=== PATIENT | male | born 1970 | race African-American/Black ===

== ENCOUNTER 2017-04-29 12:38 | Emergency (ER) | payer MEDICAID ==
[~2017-04-29] VITALS: Ht 170.2 cm; Wt 54.2 kg
[2017-04-29 12:40] VITALS: BP 164/104
[2017-04-29] MEDS ORDERED: DIPH,PERTUSS(ACELL),TET VAC/PF 0.5 ML IM-VACC ONE ×2 (13:30→13:33)
[2017-04-29] MEDS ORDERED: IBUPROFEN 200 MG TABLET ONE (13:36)
[2017-04-29] MEDS ORDERED: LIDOCAINE 1%, 20ML ONE (13:37)
[2017-04-29] MEDS ORDERED: LIDOCAINE 1%, 20ML SQ ONE (14:00)
[2017-04-29] MEDS ORDERED: IBUPROFEN 200 MG TABLET PO ONE (14:00)
== END 2017-04-29 13:56 | disposition home or self-care (01) ==
LOC: ED 13:50
DX: S71.112A Laceration without foreign body, left thigh, initial encounter (principal); I10 Essential (primary) hypertension; W26.0XXA Contact with knife, initial encounter; Y93.89 Activity, other specified; Y92.098 Other place in other non-institutional residence as the place of occurrence of the external cause; Y99.8 Other external cause status
CPT/HCPCS: 12031; 90471; 90715; 99284; J3490

== ENCOUNTER 2017-06-16 22:34 | Emergency (ER) | payer MEDICAID ==
[~2017-06-16] VITALS: Ht 170.2 cm; Wt 61.0 kg
[2017-06-16 22:38] VITALS: BP 186/128
[2017-06-16] MEDS ORDERED: CLON0.1T PO (22:44)
== END 2017-06-16 23:20 | disposition home or self-care (01) ==
LOC: ED 22:49
DX: Z76.0 Encounter for issue of repeat prescription (principal); I10 Essential (primary) hypertension; F11.10 Opioid abuse, uncomplicated; F17.200 Nicotine dependence, unspecified, uncomplicated
CPT/HCPCS: 99283

== ENCOUNTER 2017-06-24 16:44 | Emergency (ER) | payer MEDICAID ==
[~2017-06-24] VITALS: Ht 170.2 cm; Wt 53.0 kg
[~2017-06-24 16:44] MED LIST: CLON0.1T PO
[2017-06-24 16:45] VITALS: BP 155/87
== END 2017-06-24 17:11 | disposition home or self-care (01) ==
LOC: ED 16:59
DX: S81.012D Laceration without foreign body, left knee, subsequent encounter (principal); I10 Essential (primary) hypertension; X58.XXXD Exposure to other specified factors, subsequent encounter; Y92.89 Other specified places as the place of occurrence of the external cause; Y99.8 Other external cause status
CPT/HCPCS: 99281

== ENCOUNTER 2017-08-26 18:57 | Emergency (ER) | payer MEDICAID, OTHER ==
[~2017-08-26] VITALS: Ht 175.3 cm; Wt 75.0 kg
[2017-08-26 19:14] VITALS: BP 174/115
== END 2017-08-26 20:01 | disposition left against medical advice (07) ==
LOC: ED 19:07
DX: I10 Essential (primary) hypertension (principal)
CPT/HCPCS: 99281; 99283

== ENCOUNTER 2017-08-27 16:41 | Emergency (ER) | payer SELFPAY ==
[~2017-08-27] VITALS: Ht 170.2 cm; Wt 53.7 kg
[2017-08-27 18:46] LABS: HEMATOCRIT 44.4 % (39.2-51.8); HEMOGLOBIN 14.4 g/dL (13.7-18.0); WHITE BLOOD COUNT 9.9 x10^3/uL (3.4-10)
[2017-08-27 18:56] LABS: BLOOD UREA NITROGEN 17 mg/dL (7-18)
[2017-08-27 19:13] VITALS: BP 177/117
[2017-08-27 20:59] LABS: DIFF TOTAL CELLS COUNTED 100 CELL DIFF
[2017-08-27 21:00] LABS: VERIFY COUNTS? YES
[2017-08-27 21:01] LABS: ANISOCYTOSIS 1+
[2017-08-27 21:02] LABS: SMUDGE CELLS 1+
[2017-08-27 21:03] LABS: POLYCHROMASIA 1+
[2017-08-27 21:04] LABS: LARGE PLATELETS 1+
== END 2017-08-27 19:58 | disposition left against medical advice (07) ==
LOC: ED 19:00
DX: R51 Headache (principal); I10 Essential (primary) hypertension
CPT/HCPCS: 36415; 80048; 82040; 85025; 99284

== ENCOUNTER 2017-10-19 15:50 | Emergency (ER) | payer MEDICAID, OTHER ==
[~2017-10-19] VITALS: Ht 170.2 cm; Wt 60.0 kg
[2017-10-19 16:11] VITALS: BP 146/99
[2017-10-19 16:43] LABS: BASOPHILS # (AUTO) 0.03 x10^3/uL (0-0.1); BASOPHILS % (AUTO) 1 % (0-1); EOSINOPHILS # (AUTO) 0.03 x10^3/uL (0-0.4); EOSINOPHILS % (AUTO) 0 % (1-7); LYMPHOCYTES # (AUTO) 2.92 x10^3/uL (1-3.4); LYMPHOCYTES % (AUTO) 40 % (22-44); MD NO; MEAN CORPUSCULAR HEMOGLOBIN 26.4 pg (27.5-34.5); MEAN CORPUSCULAR HGB CONC 31.7 g/dL (33.2-36.2); MEAN CORPUSCULAR VOLUME 83.3 fL (81-97); MEAN PLATELET VOLUME 8.3 fL (7.4-10.4); MONOCYTES % (AUTO) 7 % (2-9); NEUTROPHILS # (AUTO) 3.82 x10^3/uL (1.8-6.8); NEUTROPHILS % (AUTO) 52 % (42-75); PLATELET COUNT 163 x10^3/uL (130-400); RED CELL DISTRIBUTION WIDTH 17.3 % (9.4-14.8)
[2017-10-19 16:55] LABS: ALANINE AMINOTRANSFERASE 44 U/L (12-78); ALBUMIN 3.1 g/dL (3.4-5.0); ANION GAP 6 mmol/L (5-15); CALCIUM 7.8 mg/dL (8.5-10.1); CHLORIDE 106 mmol/L (98-107)
[2017-10-19 17:00] LABS: ALKALINE PHOSPHATASE 111 U/L (45-117); BILIRUBIN,TOTAL 0.4 mg/dL (0.2-1.0); CREATININE 1.07 mg/dL (0.7-1.3); TOTAL PROTEIN 7.9 g/dL (6.4-8.2); TROPONIN I < 0.015 ng/mL (0.000-0.045)
== END 2017-10-19 19:21 | disposition left against medical advice (07) ==
LOC: ED 19:11
DX: R07.9 Chest pain, unspecified (principal)
CPT/HCPCS: 36415; 71045; 80053; 84484; 85025; 99285

== ENCOUNTER 2018-02-18 02:59 | Emergency (ER) | payer MEDICAID ==
[~2018-02-18] VITALS: Ht 170.2 cm; Wt 53.3 kg
[~2018-02-18 02:59] MED LIST changes: +LISI-167 PO
[2018-02-18 03:01] VITALS: BP 153/111
== END 2018-02-18 04:50 | disposition home or self-care (01) ==
LOC: ED 03:41
DX: S80.01XA Contusion of right knee, initial encounter (principal); I10 Essential (primary) hypertension; X58.XXXA Exposure to other specified factors, initial encounter; Y93.89 Activity, other specified; Y99.8 Other external cause status; Y92.89 Other specified places as the place of occurrence of the external cause
CPT/HCPCS: 99284

== ENCOUNTER 2018-06-23 03:03 | Emergency (ER) | payer MEDICAID ==
[~2018-06-23] VITALS: Ht 170.2 cm; Wt 53.7 kg
[2018-06-23 04:02] VITALS: BP 131/74
== END 2018-06-23 04:08 | disposition home or self-care (01) ==
LOC: ED 03:50
DX: L73.9 Follicular disorder, unspecified (principal); I10 Essential (primary) hypertension; Z76.0 Encounter for issue of repeat prescription
CPT/HCPCS: 99283

== ENCOUNTER 2018-07-13 18:39 | Emergency (ER) | payer MEDICAID ==
[~2018-07-13] VITALS: Ht 170.2 cm; Wt 54.0 kg
[2018-07-13 19:32] LABS: ALANINE AMINOTRANSFERASE 52 U/L (12-78); ALBUMIN 3.4 g/dL (3.4-5.0); ANION GAP 7 mmol/L (5-15); CALCIUM 8.4 mg/dL (8.5-10.1); CHLORIDE 105 mmol/L (98-107); CREATININE 1.04 mg/dL (0.7-1.3)
[2018-07-13 19:37] LABS: ALKALINE PHOSPHATASE 73 U/L (45-117); BILIRUBIN,TOTAL 0.6 mg/dL (0.2-1.0); TOTAL PROTEIN 8.3 g/dL (6.4-8.2); TROPONIN I < 0.015 ng/mL (0.000-0.045)
[2018-07-13 20:01] LABS: MD YES
[2018-07-13 20:06] LABS: MEAN CORPUSCULAR HEMOGLOBIN 27.3 pg (27.5-34.5); MEAN CORPUSCULAR HGB CONC 32.5 g/dL (33.2-36.2); MEAN CORPUSCULAR VOLUME 84.2 fL (81-97); MEAN PLATELET VOLUME 8.1 fL (7.4-10.4); PLATELET COUNT 194 x10^3/uL (130-400); RED CELL DISTRIBUTION WIDTH 17.5 % (9.4-14.8)
[2018-07-13 20:11] LABS: BASOS#(MANUAL) 0.06 x10^3/uL (0-0.1); BASOS% (MANUAL) 1 % (0-1); LYMPHS% (MANUAL) 50 % (22-44); MONOS#(MANUAL) 0.64 x10^3/uL (0.3-2.7); MONOS% (MANUAL) 11 % (2-9); REACTIVE LYMPHS # (MANUAL) 0.12 x10^3/uL (0-0); REACTIVE LYMPHS % (MANUAL) 2 % (0-0); SEG#(MANUAL) 2.09 x10^3/uL (1.8-6.8); SEGS% (MANUAL) 36 % (42-75)
[2018-07-13 20:12] LABS: ANISOCYTOSIS 1+
[2018-07-13 20:13] LABS: <PLATELET ESTIMATE> ADEQUATE; <PLT MORPHOLOGY> NORMAL PLT MORPH
[2018-07-13 20:27] VITALS: BP 147/81
== END 2018-07-13 20:35 | disposition home or self-care (01) ==
LOC: ED 20:22
DX: R07.89 Other chest pain (principal); I10 Essential (primary) hypertension; Z76.0 Encounter for issue of repeat prescription; F17.210 Nicotine dependence, cigarettes, uncomplicated
CPT/HCPCS: 36415; 71046; 80053; 84484; 85025; 93005; 99285

== ENCOUNTER 2018-07-24 15:35 | Emergency (ER) | payer MEDICAID ==
[~2018-07-24] VITALS: Ht 170.2 cm; Wt 59.0 kg
[2018-07-24] MEDS ORDERED: ASPIRIN 81 MG TABLET CHEW PO ONE (16:00)
[2018-07-24] MEDS ORDERED: ASPIRIN 81 MG TABLET CHEW ONE (16:01)
[2018-07-24 16:21] LABS: ALANINE AMINOTRANSFERASE 50 U/L (12-78); ALBUMIN 3.2 g/dL (3.4-5.0); ANION GAP 9 mmol/L (5-15); CALCIUM 8.4 mg/dL (8.5-10.1); CHLORIDE 107 mmol/L (98-107)
[2018-07-24 16:25] LABS: ALKALINE PHOSPHATASE 78 U/L (45-117); BILIRUBIN,TOTAL 0.7 mg/dL (0.2-1.0); TOTAL PROTEIN 7.7 g/dL (6.4-8.2); TROPONIN I < 0.015 ng/mL (0.000-0.045)
[2018-07-24 16:34] LABS: MD YES; MEAN CORPUSCULAR HEMOGLOBIN 26.8 pg (27.5-34.5); MEAN CORPUSCULAR HGB CONC 32.4 g/dL (33.2-36.2); MEAN CORPUSCULAR VOLUME 82.8 fL (81-97); MEAN PLATELET VOLUME 8.8 fL (7.4-10.4); PLATELET COUNT 136 x10^3/uL (130-400); RED BLOOD COUNT 4.62 x10^6/uL (4.38-5.82); RED CELL DISTRIBUTION WIDTH 17.4 % (9.4-14.8)
[2018-07-24 16:39] LABS: LYMPHS% (MANUAL) 33 % (22-44); REACTIVE LYMPHS % (MANUAL) 1 % (0-0)
[2018-07-24 16:40] LABS: <PLATELET ESTIMATE> ADEQUATE; <PLT MORPHOLOGY> NORMAL PLT MORPH; ANISOCYTOSIS 1+; HYPOCHROMIA 1+; MONOS% (MANUAL) 6 % (2-9); SEGS% (MANUAL) 60 % (42-75); SMUDGE CELLS 1+
[2018-07-24] MEDS ORDERED: KETOROLAC 30 MG/1 ML ONE (17:16)
[2018-07-24] MEDS ORDERED: KETOROLAC 30 MG/1 ML IVPush ONE (17:30)
[2018-07-24] MEDS ORDERED: OMNIPAQUE 350 MG/ML, 100ML BOTTLE ONE (18:07)
[2018-07-24] MEDS ORDERED: ALBUTEROL/IPRATROPIUM 2.5MG/0.5MG, 3 ML ONE (18:49)
[2018-07-24] MEDS ORDERED: ALBUTEROL SULFATE 2.5 MG/3 ML NPPB ONE (19:00)
[2018-07-24 19:09] VITALS: BP 142/96
== END 2018-07-24 19:33 | disposition home or self-care (01) ==
LOC: ED 17:28
DX: J18.9 Pneumonia, unspecified organism (principal); R09.1 Pleurisy; I10 Essential (primary) hypertension
CPT/HCPCS: 36415; 71045; 71275; 80053; 84484; 85025; 93005; 94640; 96374; 99285; J1885; J7613; Q9967

== ENCOUNTER 2018-10-02 19:36 | Emergency (ER) | payer MEDICAID ==
[~2018-10-02] VITALS: Ht 170.2 cm; Wt 54.7 kg
[~2018-10-02 19:36] MED LIST changes: -CLON0.1T PO; +CLON0.1T22 PO
--- NOTE | 2018-10-02 19:49 | NUR ---
NIL X 1 WHEN CALLED FOR TRIAGE.
[2018-10-02 20:36] LABS: RAPID INFLUENZA A Negative (Negative); RAPID INFLUENZA B Negative (Negative)
--- NOTE | 2018-10-02 21:12 | NUR ---
PT PLACED IN ROOM
[2018-10-02 21:13] LABS: BASOPHILS # (AUTO) 0.02 x10^3/uL (0-0.1); BASOPHILS % (AUTO) 0 % (0-1); EOSINOPHILS # (AUTO) 0.02 x10^3/uL (0-0.4); EOSINOPHILS % (AUTO) 0 % (1-7); LYMPHOCYTES # (AUTO) 3.31 x10^3/uL (1-3.4); LYMPHOCYTES % (AUTO) 36 % (22-44); MD NO; MEAN CORPUSCULAR HEMOGLOBIN 27.6 pg (27.5-34.5); MEAN CORPUSCULAR HGB CONC 32.5 g/dL (33.2-36.2); MEAN PLATELET VOLUME 8.4 fL (7.4-10.4); MONOCYTES # (AUTO) 0.72 x10^3/uL (0.2-0.8); MONOCYTES % (AUTO) 8 % (2-9); NEUTROPHILS # (AUTO) 5.07 x10^3/uL (1.8-6.8); NEUTROPHILS % (AUTO) 56 % (42-75); PLATELET COUNT 160 x10^3/uL (130-400); RED BLOOD COUNT 5.07 x10^6/uL (4.38-5.82)
[2018-10-02 21:27] LABS: ALBUMIN 3.3 g/dL (3.4-5.0); ANION GAP 2 mmol/L (5-15); CALCIUM 8.5 mg/dL (8.5-10.1); CHLORIDE 106 mmol/L (98-107); CREATININE 0.99 mg/dL (0.7-1.3)
[2018-10-02] MEDS ORDERED: LISINOPRIL 20 MG TABLET PO ONE (22:00)
[2018-10-02] MEDS ORDERED: LISINOPRIL 20 MG TABLET ONE (22:35)
[2018-10-02 22:40] VITALS: BP 178/99
--- NOTE | 2018-10-02 22:41 | NUR ---
PT MEDICATED PER EMAR. 5 RIGHTS ADDRESSED.
== END 2018-10-02 23:12 | disposition home or self-care (01) ==
LOC: ED 22:00
DX: B34.9 Viral infection, unspecified (principal); I10 Essential (primary) hypertension
CPT/HCPCS: 36415; 71046; 80048; 82040; 85025; 87400; 99284

== ENCOUNTER 2018-11-13 05:27 | Emergency (ER) | payer MEDICAID ==
[~2018-11-13] VITALS: Ht 170.2 cm; Wt 54.7 kg
--- NOTE | 2018-11-13 05:41 | NUR ---
c/o mid sternal pain x 1 hr. described as tightness. pain radiates to right arm.+ SOB. BP elevated in triage. Hx of HTN. per triage note
[2018-11-13] MEDS ORDERED: ASPIRIN 81 MG TABLET CHEW ONE (05:47)
--- NOTE | 2018-11-13 05:54 | NUR ---
given asa 162mg pt is resting
[2018-11-13] MEDS ORDERED: ASPIRIN 81 MG TABLET CHEW PO ONE (06:00)
[2018-11-13 06:34] LABS: MEAN CORPUSCULAR HEMOGLOBIN 27.5 pg (27.5-34.5); MEAN CORPUSCULAR HGB CONC 32.9 g/dL (33.2-36.2); MEAN CORPUSCULAR VOLUME 83.4 fL (81-97); MEAN PLATELET VOLUME 8.8 fL (7.4-10.4); PLATELET COUNT 170 x10^3/uL (130-400); RED BLOOD COUNT 4.99 x10^6/uL (4.38-5.82); RED CELL DISTRIBUTION WIDTH 16.6 % (9.4-14.8)
[2018-11-13 06:35] LABS: ANION GAP 6 mmol/L (5-15); CALCIUM 8.2 mg/dL (8.5-10.1); CHLORIDE 104 mmol/L (98-107)
--- NOTE | 2018-11-13 06:37 | NUR ---
bp is still elevated pt denied headache
[2018-11-13 06:40] LABS: CREATININE 1.19 mg/dL (0.7-1.3); TROPONIN I < 0.015 ng/mL (0.000-0.045)
[2018-11-13 06:46] LABS: BASOPHILS # (AUTO) 0.03 x10^3/uL (0-0.1); BASOPHILS % (AUTO) 1 % (0-1); EOSINOPHILS # (AUTO) 0.04 x10^3/uL (0-0.4); EOSINOPHILS % (AUTO) 1 % (1-7); LYMPHOCYTES # (AUTO) 2.55 x10^3/uL (1-3.4); LYMPHOCYTES % (AUTO) 37 % (22-44); MD SCAN; MONOCYTES # (AUTO) 0.29 x10^3/uL (0.2-0.8); MONOCYTES % (AUTO) 4 % (2-9); NEUTROPHILS # (AUTO) 3.97 x10^3/uL (1.8-6.8); NEUTROPHILS % (AUTO) 58 % (42-75)
--- NOTE | 2018-11-13 06:47 | NUR ---
given be d side report to emanuel Benavides
[2018-11-13 07:33] VITALS: BP 167/110
--- NOTE | 2018-11-13 07:35 | NUR ---
PT RESTING IN BED. NO WANTS OR NEEDS EXPRESSED AT THIS TIME.
== END 2018-11-13 09:32 | disposition home or self-care (01) ==
LOC: ED 07:30
DX: I10 Essential (primary) hypertension (principal); R07.89 Other chest pain; F11.20 Opioid dependence, uncomplicated; Z72.9 Problem related to lifestyle, unspecified; Z87.01 Personal history of pneumonia (recurrent)
CPT/HCPCS: 36415; 71045; 80048; 82040; 84484; 85025; 93005; 99284

== ENCOUNTER 2018-11-28 22:26 | Emergency (ER) | payer MEDICAID ==
[~2018-11-28] VITALS: Ht 170.2 cm; Wt 53.5 kg
[2018-11-28 22:29] VITALS: BP 168/118
--- NOTE | 2018-11-28 22:38 | NUR ---
PT HERE FOR RX, PT LOST RX FOR BP MEDS AND HYDROCORTISONE CREAM. PT DENIES ANY JACKMAN,SOB,CP OR ANY DISTRESS.
[2018-11-28] MEDS ORDERED: LISINOPRIL 20 MG TABLET ONE (23:26)
[2018-11-28] MEDS ORDERED: LISINOPRIL 20 MG TABLET PO ONE (23:30)
--- NOTE | 2018-11-28 23:53 | NUR ---
PT ELOPED NOT FOUND IN ROOM AT THIS TIME OR IN ED.
== END 2018-11-28 23:55 | disposition left against medical advice (07) ==
LOC: ED 23:49
DX: I10 Essential (primary) hypertension (principal)
CPT/HCPCS: 80048; 82040; 85025; 99282

== ENCOUNTER 2019-07-19 22:09 | Emergency (ER) | payer MEDICAID ==
[~2019-07-19] VITALS: Ht 170.2 cm; Wt 58.0 kg
[2019-07-19] MEDS ORDERED: LISINOPRIL 20 MG TABLET PO ONE (22:30)
[2019-07-19] MEDS ORDERED: DIPHENHYDRAMINE 50 MG/ML, 1ML IVPush ONE (22:30)
[2019-07-19] MEDS ORDERED: SODIUM CHLORIDE FLUSH 10ML SYR IVF ONE (22:30)
[2019-07-19] MEDS ORDERED: KETOROLAC 30 MG/1 ML IVPush ONE (22:30)
[2019-07-19] MEDS ORDERED: METOCLOPRAMIDE 5 MG/ML, 2ML IVPush ONE (22:30)
[2019-07-19] MEDS ORDERED: LISINOPRIL 20 MG TABLET ONE (22:46)
[2019-07-19] MEDS ORDERED: KETOROLAC 30 MG/1 ML ONE (22:46)
[2019-07-19] MEDS ORDERED: DIPHENHYDRAMINE 50 MG/ML, 1ML ONE (22:46)
[2019-07-19] MEDS ORDERED: METOCLOPRAMIDE 5 MG/ML, 2ML ONE (22:46)
[2019-07-19 22:53] LABS: ANION GAP 4 mmol/L (5-15); CALCIUM 8.8 mg/dL (8.5-10.1); CHLORIDE 104 mmol/L (98-107); CREATININE 0.94 mg/dL (0.7-1.3)
--- NOTE | 2019-07-19 23:00 | NUR ---
IV STARTED, PT MEDICATED PER ORDERS. BLANKET & CRACKERS PROVIDED.
[2019-07-19] MEDS ORDERED: hydrALAzine 20 MG/ML, 1ML ONE (23:23)
--- NOTE | 2019-07-19 23:23 | NUR ---
ERP WAS IN FOR RECHECK. BP STILL ELEVATED, WILL MEDICATE WITH HYDRALAZINE. REPORTED TO TINO WATERMAN.
--- NOTE | 2019-07-19 23:27 | NUR ---
REPORT FROM SAL RN
[2019-07-19] MEDS ORDERED: hydrALAzine 20 MG/ML, 1ML IV ONE (23:30)
[2019-07-19 23:58] VITALS: BP 158/110
== END 2019-07-20 00:22 | disposition home or self-care (01) ==
LOC: ED 23:13
DX: G43.019 Migraine without aura, intractable, without status migrainosus (principal); I10 Essential (primary) hypertension
CPT/HCPCS: 36415; 80048; 93005; 96374; 96375; 99284; J0360; J1200; J1885; J2765

== ENCOUNTER 2019-08-28 02:09 | Emergency (ER) | payer MEDICAID ==
[~2019-08-28] VITALS: Ht 170.2 cm; Wt 56.5 kg
--- NOTE | 2019-08-28 02:16 | NUR ---
PT IN BR WHEN CALLED TO TRIAGE
--- NOTE | 2019-08-28 02:38 | NUR ---
INITIAL CONTACT WITH PT. ASSESSMENT DONE. PT WAITING TO BE SEEN BY .
[2019-08-28] MEDS ORDERED: SODIUM CHLORIDE FLUSH 10ML SYR IVF ONE (03:00)
[2019-08-28] MEDS ORDERED: ACETAMINOPHEN 500 MG TABLET PO ONE (03:00)
[2019-08-28] MEDS ORDERED: ONDANSETRON 2MG/ML, 2ML IVPush ONE (03:00)
[2019-08-28] MEDS ORDERED: SODIUM CHLORIDE 0.9% 1,000ML IVBOLUS ONE (03:00)
[2019-08-28] MEDS ORDERED: ONDANSETRON 2MG/ML, 2ML ONE (03:07)
[2019-08-28] MEDS ORDERED: ACETAMINOPHEN 500 MG TABLET ONE (03:07)
[2019-08-28 03:13] LABS: BASOPHILS % (AUTO) 0 % (0-1); EOSINOPHILS # (AUTO) 0.02 x10^3/uL (0-0.4); EOSINOPHILS % (AUTO) 0 % (1-7); LYMPHOCYTES # (AUTO) 2.19 x10^3/uL (1-3.4); LYMPHOCYTES % (AUTO) 23 % (22-44); MD NO; MEAN CORPUSCULAR HEMOGLOBIN 27.2 pg (27.5-34.5); MEAN CORPUSCULAR HGB CONC 31.9 g/dL (33.2-36.2); MEAN CORPUSCULAR VOLUME 85.4 fL (81-97); MEAN PLATELET VOLUME 8.2 fL (7.4-10.4); MONOCYTES # (AUTO) 0.56 x10^3/uL (0.2-0.8); MONOCYTES % (AUTO) 6 % (2-9); NEUTROPHILS # (AUTO) 6.57 x10^3/uL (1.8-6.8); NEUTROPHILS % (AUTO) 70 % (42-75); PLATELET COUNT 142 x10^3/uL (130-400); RED BLOOD COUNT 4.76 x10^6/uL (4.38-5.82); RED CELL DISTRIBUTION WIDTH 16.8 % (9.4-14.8)
[2019-08-28 03:23] LABS: RAPID INFLUENZA A Negative (Negative); RAPID INFLUENZA B Negative (Negative)
[2019-08-28 03:24] LABS: CHLORIDE 104 mmol/L (98-107)
[2019-08-28 03:30] LABS: ALANINE AMINOTRANSFERASE 42 U/L (12-78); ALBUMIN 3.1 g/dL (3.4-5.0); ALKALINE PHOSPHATASE 113 U/L (45-117); ANION GAP 6 mmol/L (5-15); BILIRUBIN,TOTAL 1.2 mg/dL (0.2-1.0); CALCIUM 8.1 mg/dL (8.5-10.1); CREATININE 0.94 mg/dL (0.7-1.3); TOTAL PROTEIN 8.6 g/dL (6.4-8.2)
--- NOTE | 2019-08-28 05:26 | NUR ---
PT RESTNG QUIETLY, JACKMAN RESOLVED. IV FLUIDS NOT INFUSED DUE TO POSITIONAL IV. ARM POSITIONED, IV FLOWING RAPIDLY. WILL DC AFTER PT RECEIVES MORE IV FLUIDS. VS UPDATED.
[2019-08-28 05:28] VITALS: BP 152/103
--- NOTE | 2019-08-28 06:03 | NUR ---
PT DC'D HOME WITH RX X 2 AND UNDERSTANDING OF INSTRUCTIONS. PT TO DC DESK WITHOUT DIFFICULTY.
== END 2019-08-28 06:06 | disposition home or self-care (01) ==
LOC: ED 02:54
DX: R11.2 Nausea with vomiting, unspecified (principal); B34.9 Viral infection, unspecified; I10 Essential (primary) hypertension; R00.0 Tachycardia, unspecified; G43.909 Migraine, unspecified, not intractable, without status migrainosus; F17.200 Nicotine dependence, unspecified, uncomplicated
CPT/HCPCS: 36415; 71045; 80053; 85025; 87400; 93005; 96361; 96374; 99284; 99406; J2405; J7030

== ENCOUNTER 2019-12-08 05:30 | Emergency (ER) | payer MEDICAID ==
[~2019-12-08] VITALS: Ht 170.2 cm; Wt 54.8 kg
--- NOTE | 2019-12-08 05:42 | NUR ---
PA AT BEDSIDE TO ASSESS PT
[2019-12-08] MEDS ORDERED: HYDROcodone/APAP 5/325 TABLET ONE (05:47)
--- NOTE | 2019-12-08 05:49 | NUR ---
PT MEDICATED PER MAR
[2019-12-08] MEDS ORDERED: LISINOPRIL 20 MG TABLET ONE (05:59)
[2019-12-08] MEDS ORDERED: LISINOPRIL 20 MG TABLET PO ONE (06:00)
[2019-12-08] MEDS ORDERED: HYDROcodone/APAP 5/325 TABLET PO ONE (06:00)
[2019-12-08 07:07] VITALS: BP 155/115
--- NOTE | 2019-12-08 07:24 | NUR ---
Patient/Caregiver given discharge instructions and they have confirmed that they understand the instructions. Patient ambulatory with steady gait.
== END 2019-12-08 07:26 | disposition home or self-care (01) ==
LOC: ED 06:54
DX: S42.031A Displaced fracture of lateral end of right clavicle, initial encounter for closed fracture (principal); I10 Essential (primary) hypertension; G43.909 Migraine, unspecified, not intractable, without status migrainosus; W01.0XXA Fall on same level from slipping, tripping and stumbling without subsequent striking against object, initial encounter; Y93.01 Activity, walking, marching and hiking; Y92.410 Unspecified street and highway as the place of occurrence of the external cause; Y99.8 Other external cause status
CPT/HCPCS: 99283

== ENCOUNTER 2019-12-22 05:46 | Emergency (ER) | payer MEDICAID ==
[~2019-12-22] VITALS: Ht 170.2 cm; Wt 55.0 kg
[2019-12-22] MEDS ORDERED: KETOROLAC 30 MG/1 ML ONE (06:19)
[2019-12-22 06:27] LABS: MEAN CORPUSCULAR HEMOGLOBIN 27.2 pg (27.5-34.5); MEAN CORPUSCULAR HGB CONC 32.1 g/dL (33.2-36.2); MEAN CORPUSCULAR VOLUME 84.6 fL (81-97); MEAN PLATELET VOLUME 8.3 fL (7.4-10.4); PLATELET COUNT 163 x10^3/uL (130-400); RED BLOOD COUNT 5.16 x10^6/uL (4.38-5.82); RED CELL DISTRIBUTION WIDTH 16.1 % (9.4-14.8)
[2019-12-22] MEDS ORDERED: SODIUM CHLORIDE FLUSH 10ML SYR IVF ONE (06:30)
[2019-12-22] MEDS ORDERED: KETOROLAC 30 MG/1 ML IVPush ONE (06:30)
[2019-12-22 06:35] LABS: ALANINE AMINOTRANSFERASE 133 U/L (12-78); ANION GAP 8 mmol/L (5-15); CALCIUM 8.8 mg/dL (8.5-10.1); CHLORIDE 109 mmol/L (98-107); CREATININE 1.07 mg/dL (0.7-1.3)
[2019-12-22 06:40] LABS: ALKALINE PHOSPHATASE 112 U/L (45-117); BILIRUBIN,TOTAL 0.5 mg/dL (0.2-1.0); TOTAL PROTEIN 8.3 g/dL (6.4-8.2); TROPONIN I < 0.015 ng/mL (0.000-0.045)
[2019-12-22 06:52] LABS: MD YES
[2019-12-22 06:54] LABS: EOS#(MANUAL) 0.06 x10^3/uL (0.0-0.4); EOS% (MANUAL) 1 % (1-7)
[2019-12-22 06:55] LABS: LYMPH#(MANUAL) 3.42 x10^3/uL (1-3.4); LYMPHS% (MANUAL) 56 % (22-44); MONOS#(MANUAL) 0.31 x10^3/uL (0.3-2.7); MONOS% (MANUAL) 5 % (2-9); SEG#(MANUAL) 2.32 x10^3/uL (1.8-6.8); SEGS% (MANUAL) 38 % (42-75)
[2019-12-22 06:56] LABS: <PLATELET ESTIMATE> ADEQUATE; <PLT MORPHOLOGY> NORMAL PLT MORPH; ANISOCYTOSIS 1+; HYPOCHROMIA 1+
--- NOTE | 2019-12-22 06:58 | NUR ---
REPORT FROM DALE WATERMAN PATIENT RESTING COMFORTABLY IN BED. POX 97%, NOW ABLE TO TAKE DEEP BREATHS. REPORTS PAIN IMPROVED FROM 8/10 PRIOR TO MEDICATION-TO 5/10 POST
--- NOTE | 2019-12-22 07:19 | NUR ---
STATIONARY BOILER FIREMAN CALLED RADIOLOGY TO EXPEDITE CXR READ- BONBON DIPPER REPORTS RADIOLOGIST WORKING ON RAD NOW
--- NOTE | 2019-12-22 07:32 | NUR ---
TO CT SCAN
[2019-12-22] MEDS ORDERED: OMNIPAQUE 350 MG/ML, 100ML BOTTLE ONE (07:50)
[2019-12-22 08:02] VITALS: BP 168/110
--- NOTE | 2019-12-22 08:04 | NUR ---
Provided with po fluids/solids Pain remains at 5/10, pox 96-100% All testings resulted-Provider made aware
--- NOTE | 2019-12-22 08:40 | NUR ---
PROVIDED WITH REPLACEMENT ARM SLING PATIENT LOST LAST ONE
== END 2019-12-22 09:21 | disposition home or self-care (01) ==
LOC: ED 06:24
DX: R07.89 Other chest pain (principal)
CPT/HCPCS: 36415; 71045; 71275; 80053; 84484; 85025; 85379; 93005; 99285; Q9967

== ENCOUNTER 2020-02-22 18:44 | Emergency (ER) | payer MEDICAID ==
[~2020-02-22] VITALS: Ht 170.2 cm; Wt 55.1 kg
[2020-02-22] MEDS ORDERED: KETOROLAC 30 MG/1 ML ONE (19:49)
[2020-02-22 19:53] VITALS: BP 186/129
[2020-02-22] MEDS ORDERED: KETOROLAC 30 MG/1 ML IM ONE (20:00)
--- NOTE | 2020-02-22 20:46 | NUR ---
Patient is hypertensive but has a hx of HTN. Takes meds but has not been taking them. Refill RX given.
== END 2020-02-22 20:48 | disposition home or self-care (01) ==
LOC: ED 20:15
DX: S42.021A Displaced fracture of shaft of right clavicle, initial encounter for closed fracture (principal); I10 Essential (primary) hypertension; Z72.9 Problem related to lifestyle, unspecified; F15.10 Other stimulant abuse, uncomplicated; F17.200 Nicotine dependence, unspecified, uncomplicated; W01.0XXA Fall on same level from slipping, tripping and stumbling without subsequent striking against object, initial encounter; Y93.89 Activity, other specified; Y92.410 Unspecified street and highway as the place of occurrence of the external cause; Y99.8 Other external cause status
CPT/HCPCS: 73030; 96372; 99283; J1885

== ENCOUNTER 2020-03-14 12:28 | Emergency (ER) | payer MEDICAID ==
[~2020-03-14] VITALS: Ht 170.2 cm; Wt 55.2 kg
--- NOTE | 2020-03-14 12:58 | NUR ---
Pt to room from lobby.
--- NOTE | 2020-03-14 13:12 | NUR ---
PT AMBULATORY TO ROOM 4 W/ C/O R CLAVICLE PAIN AND DISLOCATION. PT STATES HE BROKE IT TWO WEEKS AGO AND WAS WALKING AND HIT HIS SHOULDER IN THE DOORWAY, REINJURING IT. DENIES ANY N/T TO R ARM. CMS INTACT. PT RESTING ON [employer].
[2020-03-14] MEDS ORDERED: HYDROcodone/APAP 5/325 TABLET PO ONE (13:30)
[2020-03-14] MEDS ORDERED: HYDROcodone/APAP 5/325 TABLET ONE (13:37)
--- NOTE | 2020-03-14 14:00 | NUR ---
PT TO AND FROM IMAGING. MEDICATED PER NOV. RESTING ON [employer] [place]. MORALESN. VSS.
[2020-03-14 15:03] VITALS: BP 163/123
--- NOTE | 2020-03-14 15:03 | NUR ---
PT BP REMAINS HIGH AFTER PAIN GENERAL INTERNIST AND PHYSICIAN LEADER. ERP DR. MALDONADO NOTIFIED.
== END 2020-03-14 16:04 | disposition home or self-care (01) ==
LOC: ED 14:19
DX: S42.001A Fracture of unspecified part of right clavicle, initial encounter for closed fracture (principal); I10 Essential (primary) hypertension; X58.XXXA Exposure to other specified factors, initial encounter; Y93.67 Activity, basketball; Y92.89 Other specified places as the place of occurrence of the external cause; Y99.8 Other external cause status
CPT/HCPCS: 99283; 99284

== ENCOUNTER 2020-03-28 21:53 | Emergency (ER) | payer MEDICAID ==
[~2020-03-28] VITALS: Ht 170.2 cm; Wt 54.5 kg
[2020-03-28] MEDS ORDERED: ACETAMINOPHEN 325 MG TABLET ONE (22:28)
[2020-03-28] MEDS ORDERED: ACETAMINOPHEN 325 MG TABLET PO ONE (22:30)
[2020-03-28] MEDS ORDERED: SODIUM CHLORIDE FLUSH 10ML SYR IVF ONE (22:30)
[2020-03-28] MEDS ORDERED: SODIUM CHLORIDE 0.9% 1,000ML IVBOLUS ONE (22:30)
--- NOTE | 2020-03-28 23:05 | NUR ---
ASSISTED PT TO ADJUST BED, NOW RESTING COMFORTABLY WITH NAD NOTED, O2 APPLIED VIA NC 2L AFTER O2 SAT 89-90% ON RA. NO LABORED BREATHING NOTED.
[2020-03-28 23:20] LABS: ALANINE AMINOTRANSFERASE 102 U/L (12-78); ALBUMIN 3.1 g/dL (3.4-5.0); ANION GAP 5 mmol/L (5-15); CALCIUM 8.8 mg/dL (8.5-10.1); CHLORIDE 101 mmol/L (98-107); CREATININE 1.01 mg/dL (0.7-1.3)
[2020-03-28 23:23] LABS: BASOPHILS # (AUTO) 0.03 x10^3/uL (0-0.1); BASOPHILS % (AUTO) 0 % (0-1); EOSINOPHILS # (AUTO) 0.01 x10^3/uL (0-0.4); EOSINOPHILS % (AUTO) 0 % (1-7); LYMPHOCYTES % (AUTO) 35 % (22-44); MD NO; MEAN CORPUSCULAR HEMOGLOBIN 26.9 pg (27.5-34.5); MEAN CORPUSCULAR HGB CONC 32.1 g/dL (33.2-36.2); MEAN CORPUSCULAR VOLUME 83.7 fL (81-97); MEAN PLATELET VOLUME 8.6 fL (7.4-10.4); MONOCYTES # (AUTO) 0.66 x10^3/uL (0.2-0.8); MONOCYTES % (AUTO) 7 % (2-9); NEUTROPHILS # (AUTO) 5.53 x10^3/uL (1.8-6.8); NEUTROPHILS % (AUTO) 57 % (42-75); PLATELET COUNT 126 x10^3/uL (130-400); RED BLOOD COUNT 5.32 x10^6/uL (4.38-5.82)
[2020-03-28 23:25] LABS: ALKALINE PHOSPHATASE 136 U/L (45-117); BILIRUBIN,TOTAL 0.6 mg/dL (0.2-1.0); TOTAL PROTEIN 9.1 g/dL (6.4-8.2); TROPONIN I < 0.015 ng/mL (0.000-0.045)
--- NOTE | 2020-03-29 00:03 | NUR ---
PT BACK FROM CT
[2020-03-29] MEDS ORDERED: OMNIPAQUE 350 MG/ML, 75ML BOTTLE ONE (00:06)
--- NOTE | 2020-03-29 01:06 | NUR ---
PT AMBULATED TO BATHROOM WITHOUT ASSISTANCE, NAD NOTED
--- NOTE | 2020-03-29 01:15 | NUR ---
PT O2 SAT 98% ON RA AFTER WALKING AROUND ROOM, BREATHING WTIHOUT DIFFICULTY
[2020-03-29 03:10] VITALS: BP 154/108
== END 2020-03-29 03:12 | disposition home or self-care (01) ==
LOC: ED 23:55
DX: Z03.818 Encounter for observation for suspected exposure to other biological agents ruled out (principal); R06.00 Dyspnea, unspecified; R05 Cough; R11.2 Nausea with vomiting, unspecified; B34.9 Viral infection, unspecified; R19.7 Diarrhea, unspecified; R94.5 Abnormal results of liver function studies; R00.0 Tachycardia, unspecified; R06.02 Shortness of breath; I10 Essential (primary) hypertension; G43.909 Migraine, unspecified, not intractable, without status migrainosus
CPT/HCPCS: 36415; 71045; 71260; 80053; 84484; 85025; 87040; 87635; 93005; 96360; 96361; 99285; J7030; Q9967

== ENCOUNTER 2020-07-16 14:08 | Emergency (ER) | payer MEDICAID ==
--- NOTE | 2020-07-16 14:36 | NUR ---
INSPECTOR LINE: PT NOT IN LOBBYX1
--- NOTE | 2020-07-16 14:45 | NUR ---
PT CALLED, NIL X 2
--- NOTE | 2020-07-16 15:16 | NUR ---
SEASONAL RETAIL MERCHANDISER: PT NOT IN LOBBY X3 WHEN CALLED FOR ROOM
== END 2020-07-16 15:18 | disposition left against medical advice (07) ==
LOC: ED 15:00
DX: Z53.21 Procedure and treatment not carried out due to patient leaving prior to being seen by health care provider (principal)

== ENCOUNTER 2020-11-03 11:13 | Emergency (ER) | payer MEDICAID ==
[~2020-11-03] VITALS: Ht 170.2 cm; Wt 57.0 kg
--- NOTE | 2020-11-03 11:19 | NUR ---
NO ANSWER X1
[2020-11-03 11:21] VITALS: BP 189/132
--- NOTE | 2020-11-03 11:35 | NUR ---
PT BROUGHT BACK FROM TRIAGE WITH CHIEF COMPLAINT OF LEFT DENTAL PAIN STARTING LAST NIGHT.
[2020-11-03] MEDS ORDERED: KETOROLAC 30 MG/1 ML ONE (11:54)
[2020-11-03] MEDS ORDERED: KETOROLAC 30 MG/1 ML IM ONE (12:00)
--- NOTE | 2020-11-03 12:03 | NUR ---
BREAK RN- MEDICATION PROVIDED
== END 2020-11-03 12:30 | disposition home or self-care (01) ==
LOC: ED 11:31
DX: K08.89 Other specified disorders of teeth and supporting structures (principal); I10 Essential (primary) hypertension
CPT/HCPCS: 96372; 99283; J1885

== ENCOUNTER 2021-04-12 21:01 | Emergency (ER) | payer MEDICAID ==
[~2021-04-12] VITALS: Ht 170.2 cm; Wt 55.2 kg
[2021-04-12 21:10] VITALS: BP 154/126
[2021-04-12] MEDS ORDERED: MORPHINE SULFATE 4 MG/ML, 1ML IVPush PRN (22:30)
[2021-04-12] MEDS ORDERED: SODIUM CHLORIDE 0.9% 1,000ML IVBOLUS ONE (22:30)
[2021-04-12] MEDS ORDERED: SODIUM CHLORIDE FLUSH 10ML SYR IVF ONE (22:30)
[2021-04-12] MEDS ORDERED: ONDANSETRON 2MG/ML, 2ML IVPush ONE (22:30)
--- NOTE | 2021-04-13 01:08 | NUR ---
nil x 1
--- NOTE | 2021-04-13 02:42 | NUR ---
pt called for room na x 2
--- NOTE | 2021-04-13 02:56 | NUR ---
PT CALLED FOR ROOM. NA X 3
== END 2021-04-13 02:58 | disposition left against medical advice (07) ==
LOC: ED 21:21
DX: R07.89 Other chest pain (principal); Z53.21 Procedure and treatment not carried out due to patient leaving prior to being seen by health care provider
CPT/HCPCS: 71045; 93005

== ENCOUNTER 2021-04-21 06:17 | Inpatient (IN) | payer MEDICAID ==
[~2021-04-21] VITALS: Ht 170.2 cm; Wt 49.2 kg
[2021-04-21] MEDS ORDERED: SODIUM CHLORIDE FLUSH 10ML SYR IVF ONE (06:30)
--- NOTE | 2021-04-21 06:41 | NUR ---
IV ATTEMPT X 2. UNSUCCESSFUL.
--- NOTE | 2021-04-21 06:42 | NUR ---
PATIENT PLACED ON 2L NC FOR SP02 OF 88% ON RA.
--- NOTE | 2021-04-21 06:55 | NUR ---
REPORT GIVEN TO GUEVARA HUANG
[2021-04-21 06:56] LABS: BASOPHILS % (AUTO) 1 % (0-1); EOSINOPHILS % (AUTO) 0 % (1-7); LYMPHOCYTES % (AUTO) 32 % (22-44); MEAN CORPUSCULAR HEMOGLOBIN 28.7 pg (27.5-34.5); MEAN CORPUSCULAR HGB CONC 32.7 g/dL (33.2-36.2); MEAN PLATELET VOLUME 8.7 fL (7.4-10.4); MONOCYTES % (AUTO) 5 % (2-9); NEUTROPHILS % (AUTO) 62 % (42-75); PLATELET COUNT 170 x10^3/uL (130-400); RED BLOOD COUNT 4.23 x10^6/uL (4.38-5.82); RED CELL DISTRIBUTION WIDTH 17.5 % (9.4-14.8)
--- NOTE | 2021-04-21 07:00 | NUR ---
REPORT RC'VD FROM GERARDO WATERMAN. PT HYPERTENSIC, TACHYPNEIC. O2 IN PLACE AT 2L NC. PT REPORTS USING HEROIN AT 1999 LAST NIGHT. REPORTS HX OF HTN.
[2021-04-21 07:02] LABS: ALANINE AMINOTRANSFERASE 24 U/L (12-78); ALBUMIN 2.2 g/dL (3.4-5.0); ANION GAP 7 mmol/L (5-15); CALCIUM 7.9 mg/dL (8.5-10.1); CHLORIDE 107 mmol/L (98-107); CREATININE 0.99 mg/dL (0.7-1.3)
[2021-04-21 07:06] LABS: ALKALINE PHOSPHATASE 115 U/L (45-117); BILIRUBIN,TOTAL 0.6 mg/dL (0.2-1.0); TOTAL PROTEIN 7.6 g/dL (6.4-8.2); TROPONIN I 0.101 ng/mL (0.000-0.045)
--- NOTE | 2021-04-21 07:40 | NUR ---
ERP AWARE OF VS, CXR RESULTS. NEW ORDERS BEING PLACED.
--- NOTE | 2021-04-21 07:53 | NUR ---
LAB AT FOR BLOOD CX DRAW.
[2021-04-21] MEDS ORDERED: ASPIRIN 81 MG TABLET CHEW PO ONE (08:00)
[2021-04-21] MEDS ORDERED: AZITHROMYCIN 500 MG in SODIUM CHLORIDE 0.9% 250 ML IV ONE (08:00)
[2021-04-21] MEDS ORDERED: CEFTRIAXONE 2 GM in DEXTROSE 5% 50 ML IVPB ONE (08:00)
[2021-04-21] MEDS ORDERED: ASPIRIN 81 MG TABLET CHEW ONE (08:02)
--- NOTE | 2021-04-21 08:28 | NUR ---
SECOND IV PLACED (LEFT EJ 20J). PT TAKEN TO CT VIA GURNEY.
--- NOTE | 2021-04-21 08:47 | NUR ---
PT BACK FROM CTA. MEDICATED PER ORDERS, ABX INFUSING.
[2021-04-21] MEDS ORDERED: OMNIPAQUE 350 MG/ML, 75ML BOTTLE ONE (09:06)
--- NOTE | 2021-04-21 09:25 | NUR ---
ADMITTING CRIBBING SETTER WAS IN TO SEE PT.
[2021-04-21 09:28] LABS: AMPHETAMINE SCREEN, URINE Positive (Negative); BARBITURATE SCREEN, URINE Negative (Negative); BENZODIAZEPINE SCREEN, URINE Negative (Negative); CANNABINOID SCREEN, URINE Negative (Negative); COCAINE SCREEN, URINE Negative (Negative); METHADONE SCREEN, URINE Negative (Negative); OPIATE SCREEN, URINE Positive (Negative)
[2021-04-21] MEDS ORDERED: LORazepam 1MG TABLET PO PRN (09:30)
[2021-04-21] MEDS ORDERED: BISACODYL 10 MG SUPP PR PRN (09:30)
[2021-04-21] MEDS ORDERED: LABETALOL 5MG/ML, 20ML IVPush ONE (09:30)
[2021-04-21] MEDS ORDERED: POLYETHYLENE GLYCOL 17 GM PACKET PO PRN (09:30)
[2021-04-21] MEDS ORDERED: ACETAMINOPHEN 325 MG TABLET PO PRN (09:30)
[2021-04-21] MEDS ORDERED: ONDANSETRON 2MG/ML, 2ML IVPush PRN (09:30)
[2021-04-21] MEDS ORDERED: FUROSEMIDE 40 MG/4 ML IV SCH (09:30)
[2021-04-21] MEDS ORDERED: METHADONE 5 MG TABLET PO SCH (09:30)
[2021-04-21] MEDS ORDERED: ONDANSETRON ODT 4 MG PO PRN (09:30)
[2021-04-21] MEDS ORDERED: LABETALOL 5MG/ML, 20ML ONE (10:04)
[2021-04-21] MEDS ORDERED: HEPARIN 5,000 UNITS/ML, 1ML ONE (10:04)
[2021-04-21] MEDS ORDERED: FUROSEMIDE 40 MG/4 ML ONE (10:04)
[2021-04-21] MEDS: HEPARIN 5,000 UNITS/ML, 1ML SQ SCH ×2 (10:19→17:30)
--- NOTE | 2021-04-21 10:20 | NUR ---
PT C/O SOB, STATES, "I CAN'T BREATHE!" MORE TACHYPNEIC WITH RR 30s. SPO2 REMAINS IN MID-90s ON 2L O2. HR 110s STLewis GIFFORD NOTIFIED, IN ROOM TO SEE PT. ERP TO ORDER BREATHING TX.
--- NOTE | 2021-04-21 10:26 | NUR ---
PT C/O NEEDING TO HAVE BM. ASSISTED UP TO BSC BUT PT STATES, "NOTHING'S COMING OUT". ASSISTED PT BACK TO BED. PT WAS TACHYPNEIC & C/O SOB, THEN PT LOST CONCIOUSNESS AND NO PULSE PALPABLE. CHEST COMPRESSIONS STARTED, ASYSTOLE NOTED WHEN PT RECONNECTED TO [facility]. CODE INITIATED.
--- NOTE | 2021-04-21 10:45 | NUR ---
responded to Stanislaw Winslow in room 3 pt currently has CPR in progress refer to Code sheet
--- NOTE | 2021-04-21 10:55 | NUR ---
pt has been moved from room 3 to T4 post intubation and post rescusitation 8.[address], 24cm at lip vent settings: Rate: 16 O2: 100% tidal Volume: 450 PEEP: 10
[2021-04-21] MEDS ORDERED: SODIUM CHLORIDE 0.9%, 250ML ONE (11:00)
[2021-04-21] MEDS ORDERED: NOREPINEPHRINE 1 MG/ML, 4ML ONE (11:00)
--- NOTE | 2021-04-21 11:15 | NUR ---
first Liter of NS completed. 2nd liter started per VO from Dr. Sun
[2021-04-21] MEDS ORDERED: VECURONIUM 10 MG IVPush ONE (11:30)
[2021-04-21] MEDS ORDERED: ETOMIDATE 40 MG/20 ML IVPush ONE (11:30)
--- NOTE | 2021-04-21 11:35 | NUR ---
levophed gtt initiated at 0.1 mcg/kg/min
--- NOTE | 2021-04-21 11:36 | NUR ---
epi 1mg administered IVP per VO from Dr. Sun at bedside
--- NOTE | 2021-04-21 11:42 | NUR ---
pt has no palpable pulses. CODE BLUE initiated CPR initiated refer to Code sheet for further information
--- NOTE | 2021-04-21 11:46 | NUR ---
Code ceased after ROSC pt now has norepinephrine rumming at 0.5 mcg/kg/min epinephrine gtt running at 7.0 mg/kg/min
--- NOTE | 2021-04-21 11:55 | NUR ---
Phyllis forrester in ED - 04/21/21 at 1159 by MARCELA pt has been moved from room 3 to T4 post intubation and post resucutation Dr. gomes at bedside for central line placement
[2021-04-21] MEDS ORDERED: NOREPINEPHRINE 8 MG in SODIUM CHLORIDE 0.9% 242 ML IV PRN (12:00)
--- NOTE | 2021-04-21 12:00 | NUR ---
pt here for SOB and L sided CP. pt was to be a tele hold for CP and elevated troponin. per report, pt was off monitor to get up to bedside commode and after getting back onto gurney went into asystole
--- NOTE | 2021-04-21 12:00 | NUR ---
Dr Sun at bedside to attempt arterial line placement lab at bedside to attempt to draw ABG
--- NOTE | 2021-04-21 12:02 | NUR ---
arterial attempt on L wrist has been unsuccessful. now attempting R wrist
--- NOTE | 2021-04-21 12:04 | NUR ---
R wrist arterial line attempt unsuccessful, R femoral approach to be attempted by Dr. Sun at bedside
--- NOTE | 2021-04-21 12:08 | NUR ---
pharmacy contated for another epi gtt
--- NOTE | 2021-04-21 12:13 | NUR ---
1 amp Bicarb IVP per VO from Dr. Sun at bedside
[2021-04-21] MEDS ORDERED: SODIUM BICARB 8.4%, 50ML SYRINGE ONE (12:26)
[2021-04-21 12:27] LABS: TROPONIN I 0.135 ng/mL (0.000-0.045)
--- NOTE | 2021-04-21 12:28 | NUR ---
collar stitcher at bedside for eval Dr. Bonita ALEX at bedside to give 2amps bicarb
[2021-04-21] MEDS ORDERED: EPINEPHRINE 10 MG in SODIUM CHLORIDE 0.9% 240 ML IV PRN (12:30)
--- NOTE | 2021-04-21 12:30 | NUR ---
epi gtt now at 3.0 mcg/kg/min levo gtt at 1 mcg/kg/min per VO from Dr. Mesa at bedside
--- NOTE | 2021-04-21 12:32 | NUR ---
pt now has bloody drainage from OG tube
--- NOTE | 2021-04-21 12:35 | NUR ---
epi gtt at 0.1 mcg/kg/min
--- NOTE | 2021-04-21 12:37 | NUR ---
levo gtt at 0.5mcg/kg/min
[2021-04-21] MEDS ORDERED: SODIUM BICARBONATE 8.4% 100 MEQ in DEXTROSE 5% 1,000 ML IV ONE (12:40)
--- NOTE | 2021-04-21 12:43 | NUR ---
LEVO GTT AT 0.3 MCG/KG.MIN EPI GTT AT 0.05 MCG/KG/MIN
--- NOTE | 2021-04-21 12:45 | NUR ---
2nd liter of NS has completed 3rd liter NS intiated per VO from Dr. Mesa at bedside
--- NOTE | 2021-04-21 12:58 | NUR ---
epi gtt @ 0.02 mcg/kg/min levo gtt @ 0.1 mcg/kg/min
--- NOTE | 2021-04-21 12:58 | NUR ---
arterial line in place to R femoral, art line pressure in correlation with peripheral B/P reading
[2021-04-21] MEDS ORDERED: EPINEPHRINE 20 MG in SODIUM CHLORIDE 0.9% 480 ML IV PRN (13:00)
--- NOTE | 2021-04-21 13:20 | NUR ---
resumed ABX infusion of Azithromycin bicard gtt initiated
--- NOTE | 2021-04-21 13:28 | NUR ---
repeat CXR at bedside lab has been to bedside to draw repeat ABG
[2021-04-21] MEDS ORDERED: GABAPENTIN 300 MG CAPSULE PO PRN (13:29)
[2021-04-21] MEDS ORDERED: KETOROLAC 30 MG/1 ML IV PRN (13:29)
[2021-04-21] MEDS: KSCALE TO 4.0 IV SCH ×3 (13:30→21:30)
[2021-04-21] MEDS: ARTIFICIAL TEARS OINT 3.5 GM EACHEYE SCH ×2 (13:30→21:45)
[2021-04-21] MEDS ORDERED: CALCIUM CHLORIDE 13.6 MEQ in SODIUM CHLORIDE 0.9% 100 ML IVPB PRN (13:30)
[2021-04-21] MEDS ORDERED: VECURONIUM 10 MG IVPush PRN (13:30)
[2021-04-21] MEDS ORDERED: SODIUM PHOSPHATE 20 MMOL in SODIUM CHLORIDE 0.9% 250 ML IVPB PRN (13:30)
--- NOTE | 2021-04-21 13:30 | NUR ---
levo gtt @ 0.06 mcg/kg/min epi gtt @ 0.01 mcg/kg/min
--- NOTE | 2021-04-21 13:47 | NUR ---
hypothermia protocol started per order
--- NOTE | 2021-04-21 14:02 | NUR ---
propofol gtt iniated per hypothermic protocol at 4.973 mcg/kg/min fentanyl gtt ordered from pharmacy
[2021-04-21 14:12] LABS: INTERNATIONAL NORMALIZED RATIO 1.4 (0.93-1.1); PROTHROMBIN TIME 14.7 Seconds (9.6-11.5)
--- NOTE | 2021-04-21 14:24 | NUR ---
report called to Floyd WATERMAN
--- NOTE | 2021-04-21 14:25 | NUR ---
levophed gtt stopped
--- NOTE | 2021-04-21 14:31 | NUR ---
RT at bedside, vent settings adjusted rate: 20 O2: 60% PEEP: 5 tidal volume: 500
--- NOTE | 2021-04-21 14:36 | NUR ---
hypothermic propofol paused for transport RT at bedside for transport all gtts running on admit pt to CCU via gursanjeev
[2021-04-21] MEDS: BUSPIRONE 10 MG TABLET NG SCH ×2 (15:17→21:31)
[2021-04-21] MEDS ORDERED: POTASSIUM CHLORIDE PMX 100 ML IV ONE ×2 (16:00→22:00)
[2021-04-21] MEDS: MAGNESIUM SULFATE 1 GM in DEXTROSE 5% 100 ML IVPB PRN ×2 (18:06→21:46)
[2021-04-21] MEDS: FENTANYL PF 1,000 MCG in SODIUM CHLORIDE 0.9% 80 ML IV PRN (18:20)
[2021-04-21] MEDS ORDERED: VECURONIUM 10 MG ONE (19:53)
[2021-04-21] MEDS ORDERED: PROPOFOL 10 MG/ML, 100ML IV ONE (19:53)
[2021-04-21] MEDS ORDERED: EPINEPHRINE SYRINGE 0.1 MG/ML, 10ML ONE (19:53)
[2021-04-21] MEDS ORDERED: ETOMIDATE 20 MG/10 ML ONE (19:53)
[2021-04-22] MEDS ORDERED: VANCOMYCIN PER PHARMACY MC PRN (00:30)
[2021-04-22] MEDS ORDERED: VANCOMYCIN 1,400 MG in SODIUM CHLORIDE 0.9% 250 ML IV ONE (00:30)
[2021-04-22] MEDS ORDERED: PHARMACOKINETIC MONITORING MC PRN (00:30)
[2021-04-22] MEDS ORDERED: DEXTROSE 50%, 50ML SYRINGE ONE (01:07)
[2021-04-22] MEDS: HEPARIN 5,000 UNITS/ML, 1ML SQ SCH ×3 (01:18→17:46)
[2021-04-22] MEDS ORDERED: DEXTROSE 5% 1,000 ML IV SCH ×2 (01:30→01:41)
[2021-04-22] MEDS: KSCALE TO 4.0 IV SCH ×6 (01:30→21:16)
[2021-04-22] MEDS ORDERED: POTASSIUM CHLORIDE PMX 100 ML IV ONE ×2 (02:00→14:00)
[2021-04-22] MEDS: PROPOFOL 100 ML IV PRN ×4 (02:17→21:16)
[2021-04-22] MEDS: ARTIFICIAL TEARS OINT 3.5 GM EACHEYE SCH ×3 (05:02→21:15)
[2021-04-22] MEDS: ASPIRIN 81 MG TABLET CHEW PO/NG SCH (05:02)
[2021-04-22] MEDS: BUSPIRONE 10 MG TABLET NG SCH (05:02)
[2021-04-22 05:15] LABS: BASOPHILS % (AUTO) 1 % (0-1); EOSINOPHILS % (AUTO) 0 % (1-7); LYMPHOCYTES % (AUTO) 25 % (22-44); MEAN CORPUSCULAR HEMOGLOBIN 28.5 pg (27.5-34.5); MEAN CORPUSCULAR HGB CONC 33.2 g/dL (33.2-36.2); MEAN PLATELET VOLUME 8.6 fL (7.4-10.4); MONOCYTES % (AUTO) 5 % (2-9); NEUTROPHILS % (AUTO) 70 % (42-75); PLATELET COUNT 134 x10^3/uL (130-400); RED BLOOD COUNT 4.07 x10^6/uL (4.38-5.82); RED CELL DISTRIBUTION WIDTH 17.7 % (9.4-14.8)
[2021-04-22 05:26] LABS: ALBUMIN 1.8 g/dL (3.4-5.0); ANION GAP 6 mmol/L (5-15); CALCIUM 7.4 mg/dL (8.5-10.1); CHLORIDE 106 mmol/L (98-107)
[2021-04-22 05:32] LABS: ALANINE AMINOTRANSFERASE 33 U/L (12-78); ALKALINE PHOSPHATASE 98 U/L (45-117); BILIRUBIN,TOTAL 0.5 mg/dL (0.2-1.0); CHOL/HDL RATIO 3.5; CHOLESTEROL, TOTAL 91 mg/dL (140-239); CREATININE 1.48 mg/dL (0.7-1.3); HDL CHOL % 29 % (26-37); HDL CHOLESTEROL (DIRECT) 26 mg/dL (40-60); LDL CHOLESTEROL,CALCULATED 53 mg/dL (54-169); TOTAL PROTEIN 6.3 g/dL (6.4-8.2); TRIGLYCERIDES 62 mg/dL (50-200); VLDL CHOLESTEROL 12 mg/dL (0-25)
[2021-04-22] MEDS ORDERED: ASPIRIN 81 MG TABLET EC PO SCH (06:00)
[2021-04-22] MEDS: FENTANYL PF 1,000 MCG in SODIUM CHLORIDE 0.9% 80 ML IV PRN ×2 (06:04→22:30)
[2021-04-22] MEDS: PIPERACILLIN/TAZO 3.375 GM in DEXTROSE 5% 50 ML IV SCH ×3 (08:03→20:11)
[2021-04-22] MEDS ORDERED: DEXTROSE 4 GM TAB.CHEW NG PRN (08:30)
[2021-04-22] MEDS: SODIUM CHLORIDE 0.9% 1,000 ML IV SCH (08:51)
[2021-04-22] MEDS: SENNA/DOCUSATE TABLET PO SCH (08:51)
[2021-04-22] MEDS: DEXTROSE 4 GM TAB.CHEW PO SCH ×3 (08:51→20:11)
[2021-04-22] MEDS: MAGNESIUM SULFATE 1 GM in DEXTROSE 5% 100 ML IVPB PRN (10:21)
[2021-04-22] MEDS: VANCOMYCIN 1,000 MG in SODIUM CHLORIDE 0.9% 100 ML IV SCH (12:59)
[2021-04-22] MEDS ORDERED: SODIUM CHLORIDE 0.9%, 500ML IVBOLUS ONE (14:30)
[2021-04-23] MEDS: VANCOMYCIN 1,000 MG in SODIUM CHLORIDE 0.9% 100 ML IV SCH ×2 (00:11→13:23)
[2021-04-23] MEDS: HEPARIN 5,000 UNITS/ML, 1ML SQ SCH ×3 (01:00→18:23)
[2021-04-23] MEDS: SODIUM CHLORIDE 0.9% 1,000 ML IV SCH ×2 (01:02→15:00)
[2021-04-23] MEDS: KSCALE TO 4.0 IV SCH ×6 (01:20→21:01)
[2021-04-23] MEDS: MAGNESIUM SULFATE 1 GM in DEXTROSE 5% 100 ML IVPB PRN (01:49)
[2021-04-23] MEDS: PIPERACILLIN/TAZO 3.375 GM in DEXTROSE 5% 50 ML IV SCH ×4 (01:54→20:47)
[2021-04-23] MEDS: DEXTROSE 4 GM TAB.CHEW PO SCH ×4 (01:54→20:30)
[2021-04-23] MEDS: PROPOFOL 100 ML IV PRN (01:55)
[2021-04-23] MEDS: NOREPINEPHRINE 8 MG in SODIUM CHLORIDE 0.9% 242 ML IV PRN ×2 (04:11→16:17)
[2021-04-23] MEDS: ARTIFICIAL TEARS OINT 3.5 GM EACHEYE SCH (05:30)
[2021-04-23] MEDS: ASPIRIN 81 MG TABLET CHEW PO/NG SCH (05:59)
[2021-04-23 06:04] LABS: BASOPHILS % (AUTO) 0 % (0-1); EOSINOPHILS % (AUTO) 0 % (1-7); LYMPHOCYTES % (AUTO) 28 % (22-44); MEAN CORPUSCULAR HEMOGLOBIN 28.3 pg (27.5-34.5); MEAN CORPUSCULAR HGB CONC 33.1 g/dL (33.2-36.2); MEAN PLATELET VOLUME 8.8 fL (7.4-10.4); MONOCYTES % (AUTO) 7 % (2-9); NEUTROPHILS % (AUTO) 66 % (42-75); PLATELET COUNT 158 x10^3/uL (130-400); RED BLOOD COUNT 3.99 x10^6/uL (4.38-5.82); RED CELL DISTRIBUTION WIDTH 17.4 % (9.4-14.8)
[2021-04-23 06:12] LABS: ANION GAP 11 mmol/L (5-15); CALCIUM 7.3 mg/dL (8.5-10.1); CHLORIDE 105 mmol/L (98-107)
[2021-04-23 06:14] LABS: CREATININE 2.27 mg/dL (0.7-1.3)
[2021-04-23] MEDS: SENNA/DOCUSATE TABLET PO SCH (09:14)
--- NOTE | 2021-04-23 10:49 | NUR ---
TF per RD recs: Promote at goal rate 60 ml/hr (on propofol); 70 ml/hr (OFF propofol). Addendum: 04/23/21 at [address] Amended: Links added.
[2021-04-23] MEDS: LABETALOL 5MG/ML, 20ML IVPush PRN (11:49)
[2021-04-23] MEDS ORDERED: VECURONIUM 10 MG IVPush ONE (12:30)
[2021-04-23] MEDS: DEXMEDETOMIDINE 200 MCG in SODIUM CHLORIDE 0.9% 48 ML IV PRN ×3 (12:40→19:33)
[2021-04-23] MEDS: FENTANYL PF 1,000 MCG in SODIUM CHLORIDE 0.9% 80 ML IV PRN ×2 (13:24→23:51)
[2021-04-24] MEDS: KSCALE TO 4.0 IV SCH ×2 (01:30→05:12)
[2021-04-24] MEDS: DEXTROSE 4 GM TAB.CHEW PO SCH ×4 (02:20→20:17)
[2021-04-24] MEDS: HEPARIN 5,000 UNITS/ML, 1ML SQ SCH ×3 (02:21→17:02)
[2021-04-24] MEDS: PIPERACILLIN/TAZO 3.375 GM in DEXTROSE 5% 50 ML IV SCH ×2 (02:21→09:16)
[2021-04-24] MEDS ORDERED: MIDAZOLAM 1 MG/ML, 5ML IVPush ONE ×2 (03:20→12:30)
[2021-04-24] MEDS ORDERED: MIDAZOLAM 1 MG/ML, 5ML ONE (03:21)
[2021-04-24 04:28] LABS: BASOPHILS % (AUTO) 1 % (0-1); EOSINOPHILS % (AUTO) 0 % (1-7); LYMPHOCYTES % (AUTO) 25 % (22-44); MEAN CORPUSCULAR HEMOGLOBIN 28.3 pg (27.5-34.5); MEAN CORPUSCULAR HGB CONC 32.7 g/dL (33.2-36.2); MEAN PLATELET VOLUME 8.9 fL (7.4-10.4); MONOCYTES % (AUTO) 8 % (2-9); NEUTROPHILS % (AUTO) 66 % (42-75); PLATELET COUNT 123 x10^3/uL (130-400); RED BLOOD COUNT 3.53 x10^6/uL (4.38-5.82); RED CELL DISTRIBUTION WIDTH 17.6 % (9.4-14.8)
[2021-04-24] MEDS: ASPIRIN 81 MG TABLET CHEW PO/NG SCH (04:33)
[2021-04-24] MEDS: SODIUM CHLORIDE 0.9% 1,000 ML IV SCH (04:34)
[2021-04-24 04:36] LABS: ANION GAP 9 mmol/L (5-15); CALCIUM 7.3 mg/dL (8.5-10.1); CHLORIDE 107 mmol/L (98-107); CREATININE 3.08 mg/dL (0.7-1.3)
[2021-04-24] MEDS: SENNA/DOCUSATE TABLET PO SCH (09:16)
[2021-04-24] MEDS: FENTANYL PF 1,000 MCG in SODIUM CHLORIDE 0.9% 80 ML IV PRN ×2 (09:17→20:17)
[2021-04-24] MEDS ORDERED: DAPTOMYCIN 400 MG in SODIUM CHLORIDE 0.9% 100 ML IVPB SCH (09:30)
[2021-04-24] MEDS ORDERED: MIDAZOLAM 1 MG/ML, 2ML ONE (12:42)
[2021-04-24] MEDS ORDERED: VECURONIUM 10 MG ONE (14:00)
[2021-04-25] MEDS: DEXMEDETOMIDINE 400 MCG in SODIUM CHLORIDE 0.9% 96 ML IV PRN ×2 (00:16→04:51)
[2021-04-25] MEDS: HEPARIN 5,000 UNITS/ML, 1ML SQ SCH ×3 (01:58→18:29)
[2021-04-25] MEDS: DEXTROSE 4 GM TAB.CHEW PO SCH (01:58)
[2021-04-25 04:59] LABS: BASOPHILS % (AUTO) 1 % (0-1); EOSINOPHILS % (AUTO) 0 % (1-7); LYMPHOCYTES % (AUTO) 23 % (22-44); MEAN CORPUSCULAR HEMOGLOBIN 28.2 pg (27.5-34.5); MEAN CORPUSCULAR HGB CONC 32.6 g/dL (33.2-36.2); MEAN PLATELET VOLUME 8.7 fL (7.4-10.4); MONOCYTES % (AUTO) 6 % (2-9); NEUTROPHILS % (AUTO) 71 % (42-75); PLATELET COUNT 117 x10^3/uL (130-400); RED BLOOD COUNT 3.64 x10^6/uL (4.38-5.82); RED CELL DISTRIBUTION WIDTH 17.3 % (9.4-14.8)
[2021-04-25] MEDS: FENTANYL PF 1,000 MCG in SODIUM CHLORIDE 0.9% 80 ML IV PRN (05:05)
[2021-04-25 05:10] LABS: ANION GAP 5 mmol/L (5-15); CALCIUM 7.7 mg/dL (8.5-10.1); CHLORIDE 108 mmol/L (98-107); CREATININE 3.21 mg/dL (0.7-1.3)
[2021-04-25] MEDS: ASPIRIN 81 MG TABLET CHEW PO/NG SCH (06:08)
[2021-04-25] MEDS ORDERED: CLINDAMYCIN PMX 600MG/50ML 50 ML IV SCH (07:30)
[2021-04-25] MEDS: SENNA/DOCUSATE TABLET PO SCH (07:51)
[2021-04-25] MEDS: LABETALOL 5MG/ML, 20ML IVPush PRN ×2 (18:51→22:58)
[2021-04-25] MEDS ORDERED: FENTANYL PF 100 MCG/2ML ONE (19:39)
[2021-04-25] MEDS: hydrALAzine 20 MG/ML, 1ML IVPush PRN (19:43)
[2021-04-25] MEDS: FENTANYL PF 100 MCG/2ML IVPush PRN ×2 (19:45→22:55)
[2021-04-25] MEDS: LORazepam 2 MG/ML, 1ML IVPush PRN (21:30)
[2021-04-26] MEDS: hydrALAzine 20 MG/ML, 1ML IVPush PRN ×4 (00:16→18:21)
[2021-04-26] MEDS: HEPARIN 5,000 UNITS/ML, 1ML SQ SCH ×3 (00:16→17:51)
[2021-04-26] MEDS: DEXMEDETOMIDINE 400 MCG in SODIUM CHLORIDE 0.9% 96 ML IV PRN ×2 (00:17→07:07)
[2021-04-26 03:33] LABS: BASOPHILS % (AUTO) 1 % (0-1); EOSINOPHILS % (AUTO) 0 % (1-7); LYMPHOCYTES % (AUTO) 23 % (22-44); MEAN CORPUSCULAR HEMOGLOBIN 27.9 pg (27.5-34.5); MEAN CORPUSCULAR HGB CONC 32.7 g/dL (33.2-36.2); MEAN PLATELET VOLUME 8.7 fL (7.4-10.4); MONOCYTES % (AUTO) 6 % (2-9); NEUTROPHILS % (AUTO) 71 % (42-75); PLATELET COUNT 161 x10^3/uL (130-400); RED BLOOD COUNT 3.66 x10^6/uL (4.38-5.82); RED CELL DISTRIBUTION WIDTH 17.4 % (9.4-14.8)
[2021-04-26 03:42] LABS: ANION GAP 7 mmol/L (5-15); CALCIUM 8.2 mg/dL (8.5-10.1); CHLORIDE 110 mmol/L (98-107); CREATININE 3.08 mg/dL (0.7-1.3)
[2021-04-26] MEDS: ASPIRIN 81 MG TABLET CHEW PO/NG SCH (03:46)
[2021-04-26] MEDS: LABETALOL 5MG/ML, 20ML IVPush PRN ×4 (05:49→23:06)
[2021-04-26] MEDS: SENNA/DOCUSATE TABLET PO SCH (09:00)
[2021-04-26] MEDS: CEFTAROLINE 300 MG in SODIUM CHLORIDE 0.9% 100 ML IV SCH (12:44)
[2021-04-26] MEDS: LORazepam 2 MG/ML, 1ML IVPush PRN (19:59)
[2021-04-27] MEDS: CEFTAROLINE 300 MG in SODIUM CHLORIDE 0.9% 100 ML IV SCH ×2 (01:04→14:03)
[2021-04-27] MEDS: HEPARIN 5,000 UNITS/ML, 1ML SQ SCH ×2 (01:58→09:30)
[2021-04-27] MEDS: hydrALAzine 20 MG/ML, 1ML IVPush PRN (01:58)
[2021-04-27] MEDS: LORazepam 2 MG/ML, 1ML IVPush PRN ×2 (01:59→08:15)
[2021-04-27] MEDS: ASPIRIN 81 MG TABLET CHEW PO/NG SCH (05:50)
[2021-04-27 06:28] LABS: BASOPHILS % (AUTO) 1 % (0-1); EOSINOPHILS % (AUTO) 0 % (1-7); LYMPHOCYTES % (AUTO) 25 % (22-44); MEAN CORPUSCULAR HEMOGLOBIN 28.5 pg (27.5-34.5); MEAN CORPUSCULAR HGB CONC 33.6 g/dL (33.2-36.2); MEAN PLATELET VOLUME 8.9 fL (7.4-10.4); MONOCYTES % (AUTO) 7 % (2-9); NEUTROPHILS % (AUTO) 68 % (42-75); PLATELET COUNT 154 x10^3/uL (130-400); RED CELL DISTRIBUTION WIDTH 16.9 % (9.4-14.8)
[2021-04-27 06:39] LABS: ANION GAP 8 mmol/L (5-15); CHLORIDE 116 mmol/L (98-107)
[2021-04-27 06:40] LABS: CREATININE 2.49 mg/dL (0.7-1.3)
[2021-04-27] MEDS: LABETALOL 5MG/ML, 20ML IVPush PRN (07:03)
[2021-04-27] MEDS: SENNA/DOCUSATE TABLET PO SCH (09:00)
[2021-04-27] MEDS ORDERED: LIDOCAINE 1%, 10ML ONE (10:23)
[2021-04-27] MEDS: PANTOPRAZOLE 40 MG IV IVPush SCH ×2 (11:07→23:46)
[2021-04-27] MEDS: LINEZOLID PMX 600MG/300ML 300 ML IV SCH ×2 (11:07→23:47)
[2021-04-27] MEDS: LACTATED RINGERS 1,000 ML IV SCH ×2 (11:08→19:30)
[2021-04-27 12:30] LABS: HCT (SEDRATE) 22.4 % (39.2-51.8)
[2021-04-27] MEDS ORDERED: GLUCAGON 1 MG IM PRN (15:30)
[2021-04-27] MEDS ORDERED: PHARMACY MAY ADJ FOR RENAL FX MC SCH (15:30)
[2021-04-27] MEDS ORDERED: LACTULOSE 20 GM/30 ML UDC NG PRN (15:30)
[2021-04-27] MEDS ORDERED: SENNA/DOCUSATE TABLET NG PRN (15:30)
[2021-04-27] MEDS ORDERED: DEXTROSE 4 GM TAB.CHEW PO PRN (15:30)
[2021-04-27] MEDS ORDERED: LIDOCAINE-MPF 1%, 2ML ENDO PRN (15:30)
[2021-04-27] MEDS ORDERED: DEXTROSE 50%, 50ML SYRINGE IVPush PRN (15:30)
[2021-04-27] MEDS: PROPOFOL 100 ML IV PRN ×3 (16:41→22:09)
[2021-04-27] MEDS ORDERED: PROPOFOL 10 MG/ML, 100ML IV ONE (18:11)
[2021-04-27] MEDS ORDERED: MIDAZOLAM 1 MG/ML, 5ML ONE (18:11)
[2021-04-27] MEDS ORDERED: ETOMIDATE 20 MG/10 ML ONE (18:11)
[2021-04-27] MEDS ORDERED: PHYTONADIONE 10 MG in SODIUM CHLORIDE 0.9% 50 ML IV ONE (19:00)
[2021-04-27 20:15] VITALS: BP 120/70
[2021-04-27 20:31] VITALS: BP 116/71
[2021-04-27 20:46] VITALS: BP 107/72
[2021-04-27 21:10] LABS: D-DIMER (DIC) 3.95 ug/mlFEU (0.00-0.52); PROTIME 15.8 Seconds (9.6-11.5)
[2021-04-27 22:05] VITALS: BP 110/71
[2021-04-27 23:05] VITALS: BP 111/60
[2021-04-27] MEDS: SODIUM CHLORIDE FLUSH 10ML SYR IVF SCH (23:47)
[2021-04-28] MEDS: CEFTAROLINE 300 MG in SODIUM CHLORIDE 0.9% 100 ML IV SCH ×2 (01:10→13:12)
[2021-04-28] MEDS: PROPOFOL 100 ML IV PRN ×5 (04:24→22:52)
[2021-04-28 04:42] LABS: BASOPHILS % (AUTO) 0 % (0-1); EOSINOPHILS % (AUTO) 0 % (1-7); LYMPHOCYTES % (AUTO) 24 % (22-44); MEAN CORPUSCULAR HEMOGLOBIN 28.3 pg (27.5-34.5); MEAN CORPUSCULAR HGB CONC 32.8 g/dL (33.2-36.2); MEAN PLATELET VOLUME 7.7 fL (7.4-10.4); MONOCYTES % (AUTO) 7 % (2-9); NEUTROPHILS % (AUTO) 68 % (42-75); PLATELET COUNT 125 x10^3/uL (130-400); RED BLOOD COUNT 2.62 x10^6/uL (4.38-5.82); RED CELL DISTRIBUTION WIDTH 16.2 % (9.4-14.8)
[2021-04-28] MEDS: FENTANYL PF 100 MCG/2ML IVPush PRN ×2 (04:51→08:29)
[2021-04-28 04:54] LABS: ALANINE AMINOTRANSFERASE 35 U/L (12-78); ALBUMIN 1.4 g/dL (3.4-5.0); ANION GAP 9 mmol/L (5-15); CALCIUM 7.6 mg/dL (8.5-10.1); CHLORIDE 117 mmol/L (98-107); CREATININE 2.28 mg/dL (0.7-1.3)
[2021-04-28 04:57] LABS: ALKALINE PHOSPHATASE 55 U/L (45-117); BILIRUBIN,TOTAL 0.9 mg/dL (0.2-1.0)
[2021-04-28] MEDS: SENNA/DOCUSATE TABLET PO SCH (08:54)
[2021-04-28] MEDS: SODIUM CHLORIDE FLUSH 10ML SYR IVF SCH ×2 (10:45→19:39)
[2021-04-28] MEDS: PANTOPRAZOLE 40 MG IV IVPush SCH ×2 (10:45→21:59)
[2021-04-28] MEDS ORDERED: LACTATED RINGERS 1,000 ML IV SCH (11:00)
[2021-04-28 13:03] VITALS: BP 94/57
[2021-04-28 13:25] VITALS: BP 111/69
[2021-04-28 13:40] VITALS: BP 112/67
[2021-04-28 15:05] VITALS: BP 99/61
[2021-04-28 16:04] VITALS: BP 118/70
[2021-04-29] MEDS: CEFTAROLINE 300 MG in SODIUM CHLORIDE 0.9% 100 ML IV SCH ×2 (00:51→12:06)
[2021-04-29] MEDS: PROPOFOL 100 ML IV PRN ×2 (03:38→09:24)
[2021-04-29 05:20] LABS: BASOPHILS % (AUTO) 0 % (0-1); EOSINOPHILS % (AUTO) 0 % (1-7); LYMPHOCYTES % (AUTO) 26 % (22-44); MEAN CORPUSCULAR HEMOGLOBIN 29.6 pg (27.5-34.5); MEAN CORPUSCULAR HGB CONC 34.7 g/dL (33.2-36.2); MEAN PLATELET VOLUME 7.8 fL (7.4-10.4); MONOCYTES % (AUTO) 7 % (2-9); NEUTROPHILS % (AUTO) 67 % (42-75); PLATELET COUNT 121 x10^3/uL (130-400); RED BLOOD COUNT 3.11 x10^6/uL (4.38-5.82); RED CELL DISTRIBUTION WIDTH 15.6 % (9.4-14.8)
[2021-04-29 05:30] LABS: ANION GAP 10 mmol/L (5-15); CHLORIDE 119 mmol/L (98-107)
[2021-04-29 05:31] LABS: CREATININE 2.76 mg/dL (0.7-1.3)
[2021-04-29 05:36] LABS: D-DIMER (DIC) 5.07 ug/mlFEU (0.00-0.52); PROTIME 12.4 Seconds (9.6-11.5)
[2021-04-29] MEDS: D5%-0.45% NACL 1,000 ML IV SCH ×2 (06:52→16:51)
[2021-04-29] MEDS: PANTOPRAZOLE 40 MG IV IVPush SCH ×2 (08:49→22:08)
[2021-04-29] MEDS: SENNA/DOCUSATE TABLET PO SCH ×2 (08:50→08:53)
[2021-04-29] MEDS: SODIUM CHLORIDE FLUSH 10ML SYR IVF SCH ×2 (08:50→19:28)
[2021-04-29 09:31] LABS: TROPONIN I 0.262 ng/mL (0.000-0.045)
[2021-04-29] MEDS ORDERED: MIDAZOLAM HCL 50 MG in SODIUM CHLORIDE 0.9% 40 ML IV PRN (10:30)
[2021-04-29] MEDS: hydrALAzine 20 MG/ML, 1ML IVPush PRN (15:27)
[2021-04-29] MEDS: MIDAZOLAM HCL IV PRN (16:49)
[2021-04-29] MEDS: DEXTROSE 5% IV PRN (16:49)
[2021-04-30] MEDS: CEFTAROLINE 300 MG in SODIUM CHLORIDE 0.9% 100 ML IV SCH ×2 (00:15→12:33)
[2021-04-30] MEDS: D5%-0.45% NACL 1,000 ML IV SCH (04:06)
[2021-04-30 04:29] LABS: BASOPHILS % (AUTO) 1 % (0-1); EOSINOPHILS % (AUTO) 1 % (1-7); LYMPHOCYTES % (AUTO) 26 % (22-44); MEAN CORPUSCULAR HEMOGLOBIN 29.3 pg (27.5-34.5); MEAN CORPUSCULAR HGB CONC 33.9 g/dL (33.2-36.2); MEAN PLATELET VOLUME 7.9 fL (7.4-10.4); MONOCYTES % (AUTO) 8 % (2-9); NEUTROPHILS % (AUTO) 65 % (42-75); PLATELET COUNT 105 x10^3/uL (130-400); RED BLOOD COUNT 2.79 x10^6/uL (4.38-5.82); RED CELL DISTRIBUTION WIDTH 16.1 % (9.4-14.8)
[2021-04-30 04:40] LABS: CALCIUM 7.5 mg/dL (8.5-10.1); CREATININE 2.49 mg/dL (0.7-1.3); TRIGLYCERIDES 123 mg/dL (50-200)
[2021-04-30 04:59] LABS: ANION GAP 6 mmol/L (5-15); CHLORIDE 121 mmol/L (98-107)
[2021-04-30] MEDS: MIDAZOLAM HCL IV PRN ×2 (08:10→19:30)
[2021-04-30] MEDS: DEXTROSE 5% IV PRN ×2 (08:10→19:30)
[2021-04-30] MEDS: FENTANYL PF 100 MCG/2ML IVPush PRN ×5 (08:19→18:14)
[2021-04-30] MEDS: SENNA/DOCUSATE TABLET PO SCH (08:27)
[2021-04-30] MEDS: PANTOPRAZOLE 40 MG IV IVPush SCH ×2 (08:27→21:10)
[2021-04-30] MEDS: SODIUM CHLORIDE FLUSH 10ML SYR IVF SCH ×2 (08:27→21:03)
[2021-04-30] MEDS ORDERED: POTASSIUM CHLORIDE 10% 20 MEQ/15 ML UDC PO ONE (11:00)
[2021-04-30] MEDS: hydrALAzine 20 MG/ML, 1ML IVPush PRN (14:53)
[2021-05-01] MEDS: FENTANYL PF 100 MCG/2ML IVPush PRN (00:39)
[2021-05-01] MEDS: CEFTAROLINE 300 MG in SODIUM CHLORIDE 0.9% 100 ML IV SCH ×2 (01:42→13:27)
[2021-05-01] MEDS: MIDAZOLAM HCL IV PRN ×4 (03:11→21:10)
[2021-05-01] MEDS: DEXTROSE 5% IV PRN ×4 (03:11→21:10)
[2021-05-01] MEDS: hydrALAzine 20 MG/ML, 1ML IVPush PRN ×2 (05:08→10:24)
[2021-05-01 07:28] LABS: BASOPHILS % (AUTO) 0 % (0-1); EOSINOPHILS % (AUTO) 2 % (1-7); LYMPHOCYTES % (AUTO) 22 % (22-44); MEAN CORPUSCULAR HEMOGLOBIN 28.6 pg (27.5-34.5); MEAN CORPUSCULAR HGB CONC 33.2 g/dL (33.2-36.2); MEAN PLATELET VOLUME 7.4 fL (7.4-10.4); MONOCYTES % (AUTO) 6 % (2-9); NEUTROPHILS % (AUTO) 70 % (42-75); PLATELET COUNT 95 x10^3/uL (130-400); RED BLOOD COUNT 3.21 x10^6/uL (4.38-5.82); RED CELL DISTRIBUTION WIDTH 16.3 % (9.4-14.8)
[2021-05-01] MEDS: SENNA/DOCUSATE TABLET PO SCH (07:30)
[2021-05-01] MEDS: SODIUM CHLORIDE FLUSH 10ML SYR IVF SCH ×2 (07:30→21:09)
[2021-05-01 07:40] LABS: ANION GAP 5 mmol/L (5-15); CALCIUM 8.1 mg/dL (8.5-10.1); CHLORIDE 123 mmol/L (98-107)
[2021-05-01] MEDS: METOPROLOL TARTRATE 25 MG TAB NG SCH ×2 (08:47→17:30)
[2021-05-01] MEDS: PANTOPRAZOLE 40 MG IV IVPush SCH ×2 (08:47→21:09)
[2021-05-02] MEDS: DEXTROSE 5% IV PRN ×2 (01:18→05:47)
[2021-05-02] MEDS: CEFTAROLINE 300 MG in SODIUM CHLORIDE 0.9% 100 ML IV SCH ×2 (01:18→13:02)
[2021-05-02] MEDS: MIDAZOLAM HCL IV PRN ×2 (01:18→05:47)
[2021-05-02] MEDS: METOPROLOL TARTRATE 25 MG TAB NG SCH ×3 (01:18→18:00)
[2021-05-02 03:24] LABS: BASOPHILS % (AUTO) 1 % (0-1); EOSINOPHILS % (AUTO) 2 % (1-7); LYMPHOCYTES % (AUTO) 26 % (22-44); MEAN CORPUSCULAR HEMOGLOBIN 28.8 pg (27.5-34.5); MEAN CORPUSCULAR HGB CONC 33.1 g/dL (33.2-36.2); MEAN PLATELET VOLUME 7.8 fL (7.4-10.4); MONOCYTES % (AUTO) 8 % (2-9); NEUTROPHILS % (AUTO) 64 % (42-75); PLATELET COUNT 99 x10^3/uL (130-400); RED CELL DISTRIBUTION WIDTH 16.8 % (9.4-14.8)
[2021-05-02 03:34] LABS: ANION GAP 4 mmol/L (5-15); CALCIUM 7.4 mg/dL (8.5-10.1); CHLORIDE 122 mmol/L (98-107); CREATININE 1.86 mg/dL (0.7-1.3)
[2021-05-02] MEDS: hydrALAzine 20 MG/ML, 1ML IVPush PRN (05:19)
[2021-05-02] MEDS: FENTANYL PF 100 MCG/2ML IVPush PRN (05:19)
[2021-05-02] MEDS ORDERED: MAGNESIUM SULFATE PMX 2GM/50ML 50 ML IV ONE (07:00)
[2021-05-02 07:04] LABS: CLOSTRIDIUM DIFFICILE ANTIGEN POSITIVE; CLOSTRIDIUM DIFFICILE TOXIN NEGATIVE (Negative)
[2021-05-02] MEDS ORDERED: FENTANYL PF 1,000 MCG in SODIUM CHLORIDE 0.9% 80 ML IV PRN (09:00)
[2021-05-02] MEDS: SENNA/DOCUSATE TABLET PO SCH (09:00)
[2021-05-02] MEDS: SODIUM CHLORIDE FLUSH 10ML SYR IVF SCH ×2 (09:00→20:15)
[2021-05-02] MEDS: MIDAZOLAM HCL 100 MG in DEXTROSE 5% 80 ML IV PRN ×2 (10:31→20:15)
[2021-05-02] MEDS: PANTOPRAZOLE 40 MG IV IVPush SCH ×2 (10:31→22:11)
[2021-05-02] MEDS: LINEZOLID PMX 600MG/300ML 300 ML IV SCH ×2 (10:31→20:15)
[2021-05-02] MEDS: DIVALPROEX 125 MG CAP.SPRINK PO SCH ×3 (11:22→22:11)
[2021-05-03] MEDS: METOPROLOL TARTRATE 25 MG TAB NG SCH (00:50)
[2021-05-03] MEDS: CEFTAROLINE 300 MG in SODIUM CHLORIDE 0.9% 100 ML IV SCH ×2 (00:50→11:24)
[2021-05-03] MEDS: DIVALPROEX 125 MG CAP.SPRINK PO SCH ×4 (04:01→21:24)
[2021-05-03 04:55] LABS: BASOPHILS % (AUTO) 1 % (0-1); EOSINOPHILS % (AUTO) 2 % (1-7); LYMPHOCYTES % (AUTO) 28 % (22-44); MEAN CORPUSCULAR HEMOGLOBIN 29.5 pg (27.5-34.5); MEAN CORPUSCULAR HGB CONC 33.3 g/dL (33.2-36.2); MEAN PLATELET VOLUME 8.4 fL (7.4-10.4); MONOCYTES % (AUTO) 7 % (2-9); NEUTROPHILS % (AUTO) 64 % (42-75); PLATELET COUNT 94 x10^3/uL (130-400); RED BLOOD COUNT 3.07 x10^6/uL (4.38-5.82); RED CELL DISTRIBUTION WIDTH 16.8 % (9.4-14.8)
[2021-05-03] MEDS: MIDAZOLAM HCL 100 MG in DEXTROSE 5% 80 ML IV PRN ×3 (04:58→23:48)
[2021-05-03] MEDS: hydrALAzine 20 MG/ML, 1ML IVPush PRN ×3 (04:58→22:37)
[2021-05-03 04:59] LABS: ANION GAP 6 mmol/L (5-15); CALCIUM 7.2 mg/dL (8.5-10.1); CHLORIDE 117 mmol/L (98-107); CREATININE 1.64 mg/dL (0.7-1.3); TRIGLYCERIDES 88 mg/dL (50-200)
[2021-05-03] MEDS ORDERED: LACTATED RINGERS 500 ML IVBOLUS ONE (06:30)
[2021-05-03] MEDS: SENNA/DOCUSATE TABLET PO SCH (09:00)
[2021-05-03] MEDS: LINEZOLID PMX 600MG/300ML 300 ML IV SCH ×2 (11:25→21:23)
[2021-05-03] MEDS ORDERED: ZIPRASIDONE 20 MG INJ IM ONE ×2 (11:36→12:00)
[2021-05-03] MEDS: PANTOPRAZOLE 40 MG IV IVPush SCH ×2 (11:38→21:23)
[2021-05-03] MEDS: SODIUM CHLORIDE FLUSH 10ML SYR IVF SCH ×2 (11:49→21:24)
[2021-05-03] MEDS: METOPROLOL TARTRATE 25 MG TAB PO SCH (17:37)
[2021-05-04] MEDS: CEFTAROLINE 300 MG in SODIUM CHLORIDE 0.9% 100 ML IV SCH (00:38)
[2021-05-04] MEDS: LABETALOL 5MG/ML, 20ML IVPush PRN (00:40)
[2021-05-04] MEDS: METOPROLOL TARTRATE 25 MG TAB PO SCH ×2 (01:30→09:11)
[2021-05-04] MEDS: FENTANYL PF 100 MCG/2ML IVPush PRN ×2 (02:18→09:10)
[2021-05-04] MEDS: DIVALPROEX 125 MG CAP.SPRINK PO SCH ×2 (04:50→09:10)
[2021-05-04] MEDS: hydrALAzine 20 MG/ML, 1ML IVPush PRN (05:52)
[2021-05-04] MEDS ORDERED: DAPTOMYCIN 500 MG in SODIUM CHLORIDE 0.9% 100 ML IV SCH (08:30)
[2021-05-04 08:41] LABS: BASOPHILS % (AUTO) 1 % (0-1); EOSINOPHILS % (AUTO) 1 % (1-7); LYMPHOCYTES % (AUTO) 21 % (22-44); MEAN CORPUSCULAR HEMOGLOBIN 28.7 pg (27.5-34.5); MEAN CORPUSCULAR HGB CONC 32.2 g/dL (33.2-36.2); MEAN PLATELET VOLUME 7.8 fL (7.4-10.4); MONOCYTES % (AUTO) 4 % (2-9); NEUTROPHILS % (AUTO) 73 % (42-75); PLATELET COUNT 122 x10^3/uL (130-400); RED BLOOD COUNT 3.63 x10^6/uL (4.38-5.82); RED CELL DISTRIBUTION WIDTH 16.6 % (9.4-14.8)
[2021-05-04 08:54] LABS: ANION GAP 6 mmol/L (5-15); CALCIUM 7.6 mg/dL (8.5-10.1); CHLORIDE 114 mmol/L (98-107); CREATININE 1.54 mg/dL (0.7-1.3)
[2021-05-04] MEDS ORDERED: SIMETHICONE 125 MG CHEW TAB PO SCH (09:00)
[2021-05-04] MEDS: SENNA/DOCUSATE TABLET PO SCH (09:00)
[2021-05-04] MEDS: LINEZOLID PMX 600MG/300ML 300 ML IV SCH (09:10)
[2021-05-04] MEDS: PANTOPRAZOLE 40 MG IV IVPush SCH (09:10)
[2021-05-04] MEDS: SODIUM CHLORIDE FLUSH 10ML SYR IVF SCH (09:11)
[2021-05-04] MEDS: MIDAZOLAM HCL 100 MG in DEXTROSE 5% 80 ML IV PRN (09:18)
--- NOTE | 2021-05-04 14:07 | NUR ---
Promote: on propofol: 60ml/hr,off propofol: 70 ml/hr Addendum: 05/04/21 at [address] Amended: Links added.
[2021-05-04] MEDS ORDERED: ATROPINE OPHTH SOLN 1%, 5ML PO PRN (17:00)
[2021-05-04] MEDS ORDERED: MORPHINE SULFATE 4 MG/ML, 1ML IV ONE (17:00)
[2021-05-04] MEDS ORDERED: LORazepam 2 MG/ML, 1ML IV ONE (17:00)
[2021-05-04] MEDS ORDERED: LORazepam 2 MG/ML, 1ML IVPush PRN (17:00)
[2021-05-04] MEDS: MORPHINE SULFATE 4 MG/ML, 1ML IVPush PRN ×2 (18:33→21:50)
[2021-05-05] MEDS: MORPHINE SULFATE 4 MG/ML, 1ML IVPush PRN ×7 (01:23→22:30)
[2021-05-06] MEDS: MORPHINE SULFATE 4 MG/ML, 1ML IVPush PRN ×3 (01:41→06:05)
[2021-05-06] MEDS ORDERED: ONDANSETRON 2MG/ML, 2ML IVPush PRN (14:30)
[2021-05-06] MEDS ORDERED: POLYETHYLENE GLYCOL 17 GM PACKET PO PRN (14:30)
[2021-05-06] MEDS ORDERED: ACETAMINOPHEN 325 MG TABLET PO PRN (14:30)
[2021-05-06] MEDS ORDERED: BISACODYL 10 MG SUPP PR PRN (14:30)
[2021-05-06] MEDS: CEFTAROLINE 600 MG in SODIUM CHLORIDE 0.9% 100 ML IV SCH (18:33)
[2021-05-06] MEDS: HEPARIN 5,000 UNITS/ML, 1ML SQ SCH (18:34)
[2021-05-06] MEDS: OXYcodone IR 5MG TABLET PO PRN (20:51)
[2021-05-06 20:53] VITALS: BP 188/132
[2021-05-06 20:58] VITALS: BP 224/132
[2021-05-06] MEDS: LABETALOL 5MG/ML, 20ML IVPush PRN (22:29)
[2021-05-07] MEDS: OXYcodone IR 5MG TABLET PO PRN ×3 (01:18→21:06)
[2021-05-07] MEDS: HEPARIN 5,000 UNITS/ML, 1ML SQ SCH ×3 (01:43→18:43)
[2021-05-07 01:48] VITALS: BP 190/107
[2021-05-07] MEDS: LABETALOL 5MG/ML, 20ML IVPush PRN ×2 (01:56→21:06)
[2021-05-07 05:21] LABS: BASOPHILS % (AUTO) 1 % (0-1); EOSINOPHILS % (AUTO) 0 % (1-7); LYMPHOCYTES % (AUTO) 25 % (22-44); MEAN CORPUSCULAR HEMOGLOBIN 28.9 pg (27.5-34.5); MEAN PLATELET VOLUME 8.5 fL (7.4-10.4); MONOCYTES % (AUTO) 8 % (2-9); NEUTROPHILS % (AUTO) 67 % (42-75); PLATELET COUNT 159 x10^3/uL (130-400); RED BLOOD COUNT 3.83 x10^6/uL (4.38-5.82); RED CELL DISTRIBUTION WIDTH 16.7 % (9.4-14.8)
[2021-05-07 05:28] LABS: ALBUMIN 1.9 g/dL (3.4-5.0); CALCIUM 7.8 mg/dL (8.5-10.1); CHLORIDE 109 mmol/L (98-107)
[2021-05-07 05:33] LABS: ALANINE AMINOTRANSFERASE 30 U/L (12-78); ALKALINE PHOSPHATASE 99 U/L (45-117); ANION GAP 8 mmol/L (5-15); BILIRUBIN,TOTAL 0.7 mg/dL (0.2-1.0); CREATININE 1.47 mg/dL (0.7-1.3); TOTAL PROTEIN 7.3 g/dL (6.4-8.2)
[2021-05-07] MEDS: CEFTAROLINE 600 MG in SODIUM CHLORIDE 0.9% 100 ML IV SCH ×3 (06:22→22:47)
[2021-05-07] MEDS ORDERED: MAGNESIUM SULFATE PMX 2GM/50ML 50 ML IV ONE (07:30)
[2021-05-07 07:55] VITALS: BP 157/103
[2021-05-07] MEDS: SENNA/DOCUSATE TABLET PO SCH (08:37)
[2021-05-07] MEDS: VANCOMYCIN 50 MG/ML ORAL SUSP PO SCH ×2 (13:41→21:06)
[2021-05-07 13:43] VITALS: BP 143/96
[2021-05-07] MEDS: LINEZOLID 600 MG TABLET PO SCH ×2 (16:11→21:06)
[2021-05-07] MEDS: ONDANSETRON 2MG/ML, 2ML IVPush PRN (19:36)
[2021-05-07 19:56] VITALS: BP 178/120
[2021-05-08 01:15] VITALS: BP 145/95
[2021-05-08] MEDS: HEPARIN 5,000 UNITS/ML, 1ML SQ SCH ×3 (02:27→18:27)
[2021-05-08] MEDS: VANCOMYCIN 50 MG/ML ORAL SUSP PO SCH ×4 (02:27→20:56)
[2021-05-08] MEDS: CEFTAROLINE 600 MG in SODIUM CHLORIDE 0.9% 100 ML IV SCH ×3 (06:50→23:24)
[2021-05-08] MEDS: SENNA/DOCUSATE TABLET PO SCH (07:26)
[2021-05-08 08:27] VITALS: BP 139/97
[2021-05-08] MEDS: LINEZOLID 600 MG TABLET PO SCH ×2 (08:33→20:56)
[2021-05-08 14:38] VITALS: BP 138/99
[2021-05-08 19:18] VITALS: BP 163/113
[2021-05-09 02:48] VITALS: BP 152/96
[2021-05-09] MEDS: HEPARIN 5,000 UNITS/ML, 1ML SQ SCH ×3 (03:03→18:18)
[2021-05-09] MEDS: VANCOMYCIN 50 MG/ML ORAL SUSP PO SCH ×4 (03:03→21:28)
[2021-05-09] MEDS: CEFTAROLINE 600 MG in SODIUM CHLORIDE 0.9% 100 ML IV SCH ×3 (06:42→22:56)
[2021-05-09 07:50] VITALS: BP 123/92
[2021-05-09] MEDS: SENNA/DOCUSATE TABLET PO SCH (09:00)
[2021-05-09] MEDS: LINEZOLID 600 MG TABLET PO SCH ×2 (09:13→21:29)
[2021-05-09 12:15] VITALS: BP 155/86
[2021-05-09 19:48] VITALS: BP 158/124
[2021-05-09 21:30] VITALS: BP 169/124
[2021-05-09] MEDS: LABETALOL 5MG/ML, 20ML IVPush PRN (21:31)
[2021-05-09 22:50] VITALS: BP 142/107
[2021-05-09] MEDS: ONDANSETRON 2MG/ML, 2ML IVPush PRN (22:56)
[2021-05-10] MEDS: OXYcodone IR 5MG TABLET PO PRN ×2 (00:02→10:04)
[2021-05-10 00:12] VITALS: BP 148/104
[2021-05-10] MEDS: HEPARIN 5,000 UNITS/ML, 1ML SQ SCH ×3 (02:22→17:49)
[2021-05-10] MEDS: VANCOMYCIN 50 MG/ML ORAL SUSP PO SCH ×4 (02:22→21:17)
[2021-05-10] MEDS: CEFTAROLINE 600 MG in SODIUM CHLORIDE 0.9% 100 ML IV SCH ×2 (06:42→17:49)
[2021-05-10 09:00] VITALS: BP 129/87
[2021-05-10] MEDS: SENNA/DOCUSATE TABLET PO SCH (09:00)
[2021-05-10] MEDS: LINEZOLID 600 MG TABLET PO SCH ×2 (10:04→21:17)
[2021-05-10 13:55] VITALS: BP 151/114
[2021-05-10 17:00] VITALS: BP 148/112
[2021-05-10] MEDS: CARVEDILOL 3.125 MG TABLET PO SCH (17:49)
[2021-05-10 19:01] VITALS: BP 146/106
[2021-05-10] MEDS: LISINOPRIL 10 MG TABLET PO SCH (21:17)
[2021-05-10] MEDS: LABETALOL 5MG/ML, 20ML IVPush PRN (22:47)
[2021-05-10] MEDS ORDERED: MORPHINE SULFATE 4 MG/ML, 1ML IVPush ONE (23:00)
[2021-05-10 23:01] VITALS: BP 158/112
[2021-05-10 23:06] LABS: BASOPHILS % (AUTO) 1 % (0-1); EOSINOPHILS % (AUTO) 1 % (1-7); LYMPHOCYTES % (AUTO) 37 % (22-44); MEAN CORPUSCULAR HGB CONC 33.2 g/dL (33.2-36.2); MEAN PLATELET VOLUME 7.8 fL (7.4-10.4); MONOCYTES % (AUTO) 8 % (2-9); NEUTROPHILS % (AUTO) 53 % (42-75); PLATELET COUNT 166 x10^3/uL (130-400); RED BLOOD COUNT 3.28 x10^6/uL (4.38-5.82); RED CELL DISTRIBUTION WIDTH 18.4 % (9.4-14.8)
[2021-05-10 23:11] LABS: ALANINE AMINOTRANSFERASE 26 U/L (12-78); ALBUMIN 1.8 g/dL (3.4-5.0); ANION GAP 8 mmol/L (5-15); CALCIUM 7.9 mg/dL (8.5-10.1); CHLORIDE 111 mmol/L (98-107); CREATININE 1.58 mg/dL (0.7-1.3)
[2021-05-10 23:15] LABS: ALKALINE PHOSPHATASE 92 U/L (45-117); BILIRUBIN,TOTAL 0.4 mg/dL (0.2-1.0); TOTAL PROTEIN 6.8 g/dL (6.4-8.2); TROPONIN I 0.019 ng/mL (0.000-0.045)
[2021-05-11] VITALS (7 sets, daily range): BP systolic 123–157; BP diastolic 86–114
[2021-05-11] MEDS: CEFTAROLINE 600 MG in SODIUM CHLORIDE 0.9% 100 ML IV SCH ×3 (01:34→17:33)
[2021-05-11] MEDS: VANCOMYCIN 50 MG/ML ORAL SUSP PO SCH ×4 (01:34→19:27)
[2021-05-11] MEDS: HEPARIN 5,000 UNITS/ML, 1ML SQ SCH ×3 (01:35→17:33)
[2021-05-11] MEDS: CARVEDILOL 3.125 MG TABLET PO SCH ×2 (05:25→17:33)
[2021-05-11 08:19] LABS: BASOPHILS % (AUTO) 1 % (0-1); EOSINOPHILS % (AUTO) 1 % (1-7); LYMPHOCYTES % (AUTO) 39 % (22-44); MEAN CORPUSCULAR HEMOGLOBIN 28.7 pg (27.5-34.5); MEAN CORPUSCULAR HGB CONC 32.8 g/dL (33.2-36.2); MEAN PLATELET VOLUME 8.3 fL (7.4-10.4); MONOCYTES % (AUTO) 5 % (2-9); NEUTROPHILS % (AUTO) 54 % (42-75); PLATELET COUNT 130 x10^3/uL (130-400); RED BLOOD COUNT 3.32 x10^6/uL (4.38-5.82)
[2021-05-11 08:23] LABS: HCT (SEDRATE) 29.1 % (39.2-51.8)
[2021-05-11 08:30] LABS: ALANINE AMINOTRANSFERASE 25 U/L (12-78); ALBUMIN 1.7 g/dL (3.4-5.0); ANION GAP 6 mmol/L (5-15); CALCIUM 7.8 mg/dL (8.5-10.1); CHLORIDE 113 mmol/L (98-107); CREATININE 1.51 mg/dL (0.7-1.3)
[2021-05-11 08:38] LABS: ALKALINE PHOSPHATASE 78 U/L (45-117); BILIRUBIN,TOTAL 0.5 mg/dL (0.2-1.0); TOTAL PROTEIN 6.6 g/dL (6.4-8.2)
[2021-05-11] MEDS: LINEZOLID 600 MG TABLET PO SCH ×2 (08:39→20:33)
[2021-05-11] MEDS: SENNA/DOCUSATE TABLET PO SCH (08:39)
[2021-05-11] MEDS: LISINOPRIL 10 MG TABLET PO SCH ×2 (08:47→22:42)
[2021-05-11] MEDS: LABETALOL 5MG/ML, 20ML IVPush PRN ×2 (08:47→19:22)
[2021-05-11] MEDS: OXYcodone IR 5MG TABLET PO PRN (22:55)
[2021-05-12] VITALS (8 sets, daily range): BP systolic 123–155; BP diastolic 87–124
[2021-05-12] MEDS: CEFTAROLINE 600 MG in SODIUM CHLORIDE 0.9% 100 ML IV SCH ×3 (01:56→17:48)
[2021-05-12] MEDS: VANCOMYCIN 50 MG/ML ORAL SUSP PO SCH ×4 (01:57→20:52)
[2021-05-12] MEDS: HEPARIN 5,000 UNITS/ML, 1ML SQ SCH ×3 (01:57→17:48)
[2021-05-12] MEDS: LABETALOL 5MG/ML, 20ML IVPush PRN ×2 (02:05→09:23)
[2021-05-12] MEDS: CARVEDILOL 3.125 MG TABLET PO SCH (05:12)
[2021-05-12] MEDS: SENNA/DOCUSATE TABLET PO SCH (09:22)
[2021-05-12] MEDS: LINEZOLID 600 MG TABLET PO SCH ×2 (09:22→21:00)
[2021-05-12] MEDS: LISINOPRIL 10 MG TABLET PO SCH ×2 (09:22→20:52)
[2021-05-12] MEDS: OXYcodone IR 5MG TABLET PO PRN (09:27)
[2021-05-12 14:14] LABS: TROPONIN I < 0.015 ng/mL (0.000-0.045)
[2021-05-12] MEDS: CARVEDILOL 6.25 MG TABLET PO SCH (17:48)
[2021-05-13 00:07] VITALS: BP 134/95
[2021-05-13] MEDS: CEFTAROLINE 600 MG in SODIUM CHLORIDE 0.9% 100 ML IV SCH ×3 (02:04→17:53)
[2021-05-13] MEDS: VANCOMYCIN 50 MG/ML ORAL SUSP PO SCH ×4 (02:04→21:29)
[2021-05-13] MEDS: HEPARIN 5,000 UNITS/ML, 1ML SQ SCH ×3 (02:04→17:53)
[2021-05-13] MEDS: CARVEDILOL 6.25 MG TABLET PO SCH ×2 (05:20→17:53)
[2021-05-13 09:09] VITALS: BP 136/93
[2021-05-13] MEDS: LINEZOLID 600 MG TABLET PO SCH ×2 (09:15→21:29)
[2021-05-13] MEDS: OXYcodone IR 5MG TABLET PO PRN (09:15)
[2021-05-13] MEDS: LISINOPRIL 10 MG TABLET PO SCH ×2 (09:16→21:29)
[2021-05-13] MEDS: SENNA/DOCUSATE TABLET PO SCH (09:16)
[2021-05-13 13:01] VITALS: BP 146/90
[2021-05-13 20:09] VITALS: BP 151/92
[2021-05-14] MEDS: HEPARIN 5,000 UNITS/ML, 1ML SQ SCH ×3 (02:21→16:21)
[2021-05-14] MEDS: CEFTAROLINE 600 MG in SODIUM CHLORIDE 0.9% 100 ML IV SCH ×2 (02:21→09:03)
[2021-05-14 02:32] VITALS: BP 129/83
[2021-05-14] MEDS: VANCOMYCIN 50 MG/ML ORAL SUSP PO SCH ×4 (03:25→21:20)
[2021-05-14] MEDS: CARVEDILOL 6.25 MG TABLET PO SCH ×2 (06:16→16:21)
[2021-05-14 07:31] VITALS: BP 131/77
[2021-05-14 08:43] LABS: MEAN CORPUSCULAR HEMOGLOBIN 29.3 pg (27.5-34.5); MEAN CORPUSCULAR HGB CONC 33.5 g/dL (33.2-36.2); MEAN PLATELET VOLUME 7.8 fL (7.4-10.4); PLATELET COUNT 119 x10^3/uL (130-400); RED BLOOD COUNT 3.21 x10^6/uL (4.38-5.82); RED CELL DISTRIBUTION WIDTH 18.1 % (9.4-14.8)
[2021-05-14 08:58] LABS: ALANINE AMINOTRANSFERASE 21 U/L (12-78); ALBUMIN 1.7 g/dL (3.4-5.0); ANION GAP 7 mmol/L (5-15); CALCIUM 8.2 mg/dL (8.5-10.1); CHLORIDE 111 mmol/L (98-107)
[2021-05-14 09:00] LABS: ALKALINE PHOSPHATASE 84 U/L (45-117); BILIRUBIN,TOTAL 0.4 mg/dL (0.2-1.0); TOTAL PROTEIN 6.5 g/dL (6.4-8.2)
[2021-05-14] MEDS: SENNA/DOCUSATE TABLET PO SCH (09:00)
[2021-05-14] MEDS: LISINOPRIL 10 MG TABLET PO SCH ×2 (09:03→21:20)
[2021-05-14] MEDS: LINEZOLID 600 MG TABLET PO SCH (09:03)
[2021-05-14 09:28] LABS: EOS#(MANUAL) 0.05 x10^3/uL (0.0-0.4); EOS% (MANUAL) 1 % (1-7); LYMPH#(MANUAL) 2.34 x10^3/uL (1-3.4); LYMPHS% (MANUAL) 52 % (22-44); MONOS#(MANUAL) 0.27 x10^3/uL (0.3-2.7); MONOS% (MANUAL) 6 % (2-9); SEG#(MANUAL) 1.85 x10^3/uL (1.8-6.8); SEGS% (MANUAL) 41 % (42-75); SMUDGE CELLS 1+
[2021-05-14 09:29] LABS: ANISOCYTOSIS 1+
[2021-05-14 09:30] LABS: <PLATELET ESTIMATE> DECREASED; <PLT MORPHOLOGY> NORMAL PLT MORPH
[2021-05-14] MEDS ORDERED: DAPTOMYCIN 425 MG in SODIUM CHLORIDE 0.9% 100 ML IVPB SCH (13:00)
[2021-05-14 13:11] VITALS: BP 154/97
[2021-05-14 19:00] VITALS: BP 169/121
[2021-05-14] MEDS: LABETALOL 5MG/ML, 20ML IVPush PRN (21:20)
[2021-05-15] MEDS: HEPARIN 5,000 UNITS/ML, 1ML SQ SCH ×4 (00:02→23:54)
[2021-05-15 00:50] VITALS: BP 172/95
[2021-05-15] MEDS: LABETALOL 5MG/ML, 20ML IVPush PRN (01:07)
[2021-05-15] MEDS: OXYcodone IR 5MG TABLET PO PRN (03:08)
[2021-05-15] MEDS: VANCOMYCIN 50 MG/ML ORAL SUSP PO SCH ×4 (03:08→20:22)
[2021-05-15] MEDS: CARVEDILOL 6.25 MG TABLET PO SCH ×2 (05:39→17:11)
[2021-05-15 07:31] LABS: MEAN CORPUSCULAR HGB CONC 32.7 g/dL (33.2-36.2); PLATELET COUNT 102 x10^3/uL (130-400); RED BLOOD COUNT 3.01 x10^6/uL (4.38-5.82); RED CELL DISTRIBUTION WIDTH 18.4 % (9.4-14.8)
[2021-05-15 07:34] LABS: ALBUMIN 1.9 g/dL (3.4-5.0); ANION GAP 9 mmol/L (5-15); CHLORIDE 110 mmol/L (98-107)
[2021-05-15 07:36] VITALS: BP 134/87
[2021-05-15 07:38] LABS: ALANINE AMINOTRANSFERASE 18 U/L (12-78); ALKALINE PHOSPHATASE 74 U/L (45-117); BILIRUBIN,TOTAL 0.5 mg/dL (0.2-1.0); CREATININE 1.46 mg/dL (0.7-1.3); TOTAL PROTEIN 6.4 g/dL (6.4-8.2)
[2021-05-15 07:49] LABS: CALCIUM 7.9 mg/dL (8.5-10.1)
[2021-05-15] MEDS: LISINOPRIL 10 MG TABLET PO SCH ×2 (07:56→20:22)
[2021-05-15] MEDS: SENNA/DOCUSATE TABLET PO SCH (07:56)
[2021-05-15 09:15] LABS: ANISOCYTOSIS 1+; BASOS#(MANUAL) 0.05 x10^3/uL (0-0.1); BASOS% (MANUAL) 1 % (0-1); LYMPHS% (MANUAL) 50 % (22-44); MONOS% (MANUAL) 2 % (2-9); SEG#(MANUAL) 2.35 x10^3/uL (1.8-6.8); SEGS% (MANUAL) 47 % (42-75)
[2021-05-15 09:16] LABS: <PLATELET ESTIMATE> DECREASED; <PLT MORPHOLOGY> NORMAL PLT MORPH; HYPOCHROMIA 1+; SMUDGE CELLS 1+
[2021-05-15] MEDS: CEFTAROLINE 600 MG in SODIUM CHLORIDE 0.9% 100 ML IV SCH ×2 (12:00→20:23)
[2021-05-15] MEDS: LINEZOLID 600 MG TABLET PO SCH ×2 (12:01→20:22)
[2021-05-15 12:49] VITALS: BP 140/90
[2021-05-15] MEDS ORDERED: DAPTOMYCIN 400 MG in SODIUM CHLORIDE 0.9% 100 ML IVPB SCH (13:00)
[2021-05-15 20:20] VITALS: BP 154/100
[2021-05-16 00:16] VITALS: BP 178/112
[2021-05-16] MEDS: LABETALOL 5MG/ML, 20ML IVPush PRN (01:09)
[2021-05-16] MEDS: VANCOMYCIN 50 MG/ML ORAL SUSP PO SCH ×4 (03:52→20:25)
[2021-05-16] MEDS: CEFTAROLINE 600 MG in SODIUM CHLORIDE 0.9% 100 ML IV SCH ×3 (04:55→20:25)
[2021-05-16] MEDS: CARVEDILOL 6.25 MG TABLET PO SCH ×2 (05:30→18:09)
[2021-05-16 07:38] VITALS: BP 145/80
[2021-05-16] MEDS: SENNA/DOCUSATE TABLET PO SCH (08:48)
[2021-05-16] MEDS: HEPARIN 5,000 UNITS/ML, 1ML SQ SCH ×2 (08:48→15:37)
[2021-05-16] MEDS: LISINOPRIL 10 MG TABLET PO SCH ×2 (08:48→20:26)
[2021-05-16] MEDS: LINEZOLID 600 MG TABLET PO SCH ×2 (08:48→20:26)
[2021-05-16 12:50] VITALS: BP 150/95
[2021-05-16 20:28] VITALS: BP 162/115
[2021-05-17] MEDS: HEPARIN 5,000 UNITS/ML, 1ML SQ SCH ×3 (00:16→16:10)
[2021-05-17 01:34] VITALS: BP 172/113
[2021-05-17] MEDS: VANCOMYCIN 50 MG/ML ORAL SUSP PO SCH ×4 (03:27→20:12)
[2021-05-17] MEDS: CEFTAROLINE 600 MG in SODIUM CHLORIDE 0.9% 100 ML IV SCH ×3 (03:27→20:12)
[2021-05-17] MEDS: CARVEDILOL 6.25 MG TABLET PO SCH (06:26)
[2021-05-17] MEDS ORDERED: CARVEDILOL 6.25 MG TABLET PO ONE (07:00)
[2021-05-17 08:14] VITALS: BP 162/102
[2021-05-17] MEDS: SENNA/DOCUSATE TABLET PO SCH (08:16)
[2021-05-17] MEDS: LINEZOLID 600 MG TABLET PO SCH ×2 (08:16→20:12)
[2021-05-17] MEDS: LISINOPRIL 10 MG TABLET PO SCH ×2 (08:16→20:12)
[2021-05-17 12:47] VITALS: BP 156/105
[2021-05-17] MEDS: CARVEDILOL 12.5 MG TABLET PO SCH (17:23)
[2021-05-17 18:41] VITALS: BP 152/83
[2021-05-18] MEDS: HEPARIN 5,000 UNITS/ML, 1ML SQ SCH ×2 (00:05→08:17)
[2021-05-18 00:19] VITALS: BP 147/71
[2021-05-18] MEDS: VANCOMYCIN 50 MG/ML ORAL SUSP PO SCH ×3 (03:32→14:46)
[2021-05-18] MEDS: CEFTAROLINE 600 MG in SODIUM CHLORIDE 0.9% 100 ML IV SCH (03:32)
[2021-05-18 05:02] LABS: MEAN CORPUSCULAR HGB CONC 32.5 g/dL (33.2-36.2); MEAN PLATELET VOLUME 8.3 fL (7.4-10.4); PLATELET COUNT 55 x10^3/uL (130-400); RED CELL DISTRIBUTION WIDTH 18.5 % (9.4-14.8)
[2021-05-18 05:16] LABS: ALANINE AMINOTRANSFERASE 22 U/L (12-78); ALBUMIN 1.8 g/dL (3.4-5.0); ANION GAP 10 mmol/L (5-15); C-REACTIVE PROTEIN, QUANT 0.41 mg/dL (0.02-0.49); CALCIUM 7.9 mg/dL (8.5-10.1); CHLORIDE 108 mmol/L (98-107); CREATININE 1.13 mg/dL (0.7-1.3)
[2021-05-18 05:19] LABS: ALKALINE PHOSPHATASE 80 U/L (45-117); BILIRUBIN,TOTAL 0.6 mg/dL (0.2-1.0); TOTAL PROTEIN 6.5 g/dL (6.4-8.2)
[2021-05-18 05:33] VITALS: BP 140/100
[2021-05-18] MEDS: CARVEDILOL 12.5 MG TABLET PO SCH (05:36)
[2021-05-18 06:04] LABS: LYMPH#(MANUAL) 1.89 x10^3/uL (1-3.4); LYMPHS% (MANUAL) 45 % (22-44); MONOS#(MANUAL) 0.21 x10^3/uL (0.3-2.7); MONOS% (MANUAL) 5 % (2-9); SEGS% (MANUAL) 50 % (42-75)
[2021-05-18 06:05] LABS: ANISOCYTOSIS 1+; HYPOCHROMIA 1+; PMNS WITH VACUOLES 1+; TOXIC GRAN 1+
[2021-05-18 06:06] LABS: <PLATELET ESTIMATE> DECREASED; <PLT MORPHOLOGY> NORMAL PLT MORPH
[2021-05-18 06:51] VITALS: BP 153/95
[2021-05-18] MEDS: SENNA/DOCUSATE TABLET PO SCH (07:08)
[2021-05-18] MEDS: LINEZOLID 600 MG TABLET PO SCH (08:17)
[2021-05-18] MEDS: LISINOPRIL 10 MG TABLET PO SCH ×2 (08:22→19:28)
[2021-05-18 09:05] LABS: HCT (SEDRATE) 25.9 % (39.2-51.8)
[2021-05-18] MEDS ORDERED: VANCOMYCIN PER PHARMACY MC PRN (11:30)
[2021-05-18] MEDS ORDERED: VANCOMYCIN 1,400 MG in SODIUM CHLORIDE 0.9% 250 ML IV ONE (12:00)
[2021-05-18] MEDS ORDERED: VANCOMYCIN 1,100 MG in SODIUM CHLORIDE 0.9% 250 ML IV SCH ×2 (12:00→20:00)
[2021-05-18] MEDS ORDERED: PHARMACOKINETIC MONITORING MC PRN (12:00)
[2021-05-18 13:02] VITALS: BP 147/98
[2021-05-18] MEDS: CARVEDILOL 25 MG TABLET PO SCH (18:05)
[2021-05-18] MEDS: DAPTOMYCIN 800 MG in SODIUM CHLORIDE 0.9% 100 ML IV SCH (18:05)
[2021-05-18 18:57] VITALS: BP 162/109
[2021-05-19 01:39] VITALS: BP 145/109
[2021-05-19] MEDS: CARVEDILOL 25 MG TABLET PO SCH ×2 (05:52→17:54)
[2021-05-19 07:44] LABS: MEAN CORPUSCULAR HEMOGLOBIN 28.9 pg (27.5-34.5); MEAN CORPUSCULAR HGB CONC 32.7 g/dL (33.2-36.2); MEAN PLATELET VOLUME 8.6 fL (7.4-10.4); PLATELET COUNT 58 x10^3/uL (130-400); RED BLOOD COUNT 2.86 x10^6/uL (4.38-5.82)
[2021-05-19 07:57] LABS: ANION GAP 7 mmol/L (5-15); CALCIUM 8.3 mg/dL (8.5-10.1); CHLORIDE 109 mmol/L (98-107); CREATININE 1.05 mg/dL (0.7-1.3)
[2021-05-19 08:19] LABS: ANISOCYTOSIS 1+; LYMPH#(MANUAL) 1.72 x10^3/uL (1-3.4); LYMPHS% (MANUAL) 41 % (22-44); MONOS#(MANUAL) 0.17 x10^3/uL (0.3-2.7); MONOS% (MANUAL) 4 % (2-9); SEG#(MANUAL) 2.31 x10^3/uL (1.8-6.8); SEGS% (MANUAL) 55 % (42-75)
[2021-05-19 08:20] LABS: HYPOCHROMIA 1+
[2021-05-19 08:22] LABS: <PLATELET ESTIMATE> DECREASED; <PLT MORPHOLOGY> NORMAL PLT MORPH; PMNS WITH VACUOLES 1+
[2021-05-19 08:25] VITALS: BP 143/91
[2021-05-19] MEDS: SENNA/DOCUSATE TABLET PO SCH (09:00)
[2021-05-19] MEDS: LISINOPRIL 10 MG TABLET PO SCH ×2 (09:38→20:00)
[2021-05-19] MEDS: AMLODIPINE 5 MG TABLET PO SCH (09:38)
[2021-05-19 15:11] VITALS: BP 154/108
[2021-05-19 18:44] VITALS: BP 154/94
[2021-05-19 19:50] VITALS: BP 146/90
[2021-05-19] MEDS: DAPTOMYCIN 800 MG in SODIUM CHLORIDE 0.9% 100 ML IV SCH (19:52)
[2021-05-20 00:14] VITALS: BP 146/93
[2021-05-20 06:01] VITALS: BP 180/116
[2021-05-20] MEDS: CARVEDILOL 25 MG TABLET PO SCH ×2 (06:05→18:35)
[2021-05-20 06:21] LABS: MEAN CORPUSCULAR HGB CONC 33.4 g/dL (33.2-36.2); RED BLOOD COUNT 3.48 x10^6/uL (4.38-5.82); RED CELL DISTRIBUTION WIDTH 17.7 % (9.4-14.8)
[2021-05-20 06:24] LABS: ANION GAP 7 mmol/L (5-15); CALCIUM 8.5 mg/dL (8.5-10.1); CHLORIDE 107 mmol/L (98-107)
[2021-05-20 06:27] LABS: CREATININE 1.05 mg/dL (0.7-1.3)
[2021-05-20 06:49] LABS: PLATELET COUNT 55 x10^3/uL (130-400)
[2021-05-20 06:53] LABS: <PLATELET ESTIMATE> DECREASED; <PLT MORPHOLOGY> NORMAL PLT MORPH; LYMPH#(MANUAL) 2.44 x10^3/uL (1-3.4); LYMPHS% (MANUAL) 42 % (22-44); MONOS#(MANUAL) 0.29 x10^3/uL (0.3-2.7); MONOS% (MANUAL) 5 % (2-9); SEG#(MANUAL) 3.07 x10^3/uL (1.8-6.8); SEGS% (MANUAL) 53 % (42-75)
[2021-05-20 06:55] LABS: ANISOCYTOSIS 1+; HYPOCHROMIA 1+
[2021-05-20] MEDS: SENNA/DOCUSATE TABLET PO SCH (09:00)
[2021-05-20 09:22] VITALS: BP 131/80
[2021-05-20] MEDS: LISINOPRIL 10 MG TABLET PO SCH ×2 (09:27→20:48)
[2021-05-20] MEDS: AMLODIPINE 5 MG TABLET PO SCH (09:27)
[2021-05-20 15:04] VITALS: BP 142/90
[2021-05-20] MEDS: DAPTOMYCIN 800 MG in SODIUM CHLORIDE 0.9% 100 ML IV SCH (18:39)
[2021-05-20 20:43] VITALS: BP 134/90
[2021-05-21 00:45] VITALS: BP 167/99
[2021-05-21] MEDS: CARVEDILOL 25 MG TABLET PO SCH ×2 (06:25→19:29)
[2021-05-21] MEDS: SENNA/DOCUSATE TABLET PO SCH (08:41)
[2021-05-21 08:47] VITALS: BP 126/79
[2021-05-21] MEDS: LISINOPRIL 10 MG TABLET PO SCH ×2 (08:48→21:20)
[2021-05-21] MEDS: AMLODIPINE 5 MG TABLET PO SCH (08:48)
[2021-05-21] MEDS: VANCOMYCIN 50 MG/ML ORAL SUSP PO SCH ×2 (11:52→21:20)
[2021-05-21 14:00] VITALS: BP 149/87
[2021-05-21] MEDS: DAPTOMYCIN 800 MG in SODIUM CHLORIDE 0.9% 100 ML IV SCH (19:29)
[2021-05-21 21:06] VITALS: BP 130/87
[2021-05-22 00:54] VITALS: BP 126/85
[2021-05-22 05:25] VITALS: BP 135/89
[2021-05-22] MEDS: CARVEDILOL 25 MG TABLET PO SCH ×2 (05:28→18:35)
[2021-05-22 08:08] VITALS: BP 114/69
[2021-05-22] MEDS: AMLODIPINE 5 MG TABLET PO SCH (08:09)
[2021-05-22] MEDS: LISINOPRIL 10 MG TABLET PO SCH ×2 (08:09→21:45)
[2021-05-22] MEDS: VANCOMYCIN 50 MG/ML ORAL SUSP PO SCH (08:10)
[2021-05-22 15:03] VITALS: BP 121/83
[2021-05-22 18:34] VITALS: BP 149/98
[2021-05-22] MEDS: DAPTOMYCIN 800 MG in SODIUM CHLORIDE 0.9% 100 ML IV SCH (18:46)
[2021-05-22 21:44] VITALS: BP 130/83
[2021-05-23 00:31] VITALS: BP 130/88
[2021-05-23 06:22] VITALS: BP 144/97
[2021-05-23] MEDS: CARVEDILOL 25 MG TABLET PO SCH ×2 (06:25→18:37)
[2021-05-23 06:28] LABS: BASOPHILS % (AUTO) 1 % (0-1); EOSINOPHILS % (AUTO) 1 % (1-7); LYMPHOCYTES % (AUTO) 32 % (22-44); MEAN PLATELET VOLUME 9.1 fL (7.4-10.4); MONOCYTES % (AUTO) 12 % (2-9); NEUTROPHILS % (AUTO) 53 % (42-75); PLATELET COUNT 88 x10^3/uL (130-400); RED BLOOD COUNT 2.84 x10^6/uL (4.38-5.82)
[2021-05-23 07:15] VITALS: BP 125/78
[2021-05-23] MEDS: AMLODIPINE 5 MG TABLET PO SCH (09:03)
[2021-05-23] MEDS: LISINOPRIL 10 MG TABLET PO SCH ×2 (09:03→21:57)
[2021-05-23 13:21] VITALS: BP 132/87
[2021-05-23 18:34] VITALS: BP 136/90
[2021-05-23] MEDS: DAPTOMYCIN 800 MG in SODIUM CHLORIDE 0.9% 100 ML IV SCH (18:37)
[2021-05-23 21:56] VITALS: BP 117/78
[2021-05-24 01:26] VITALS: BP 116/78
[2021-05-24 06:28] VITALS: BP 132/86
[2021-05-24] MEDS: CARVEDILOL 25 MG TABLET PO SCH ×2 (06:29→17:55)
[2021-05-24] MEDS: AMLODIPINE 5 MG TABLET PO SCH (10:11)
[2021-05-24] MEDS: LISINOPRIL 10 MG TABLET PO SCH ×2 (10:11→20:16)
[2021-05-24 15:46] VITALS: BP 117/78
[2021-05-24] MEDS: DAPTOMYCIN 800 MG in SODIUM CHLORIDE 0.9% 100 ML IV SCH (17:55)
[2021-05-24 18:47] VITALS: BP 115/76
[2021-05-25 01:17] VITALS: BP 104/68
[2021-05-25 06:00] LABS: BASOPHILS % (AUTO) 1 % (0-1); EOSINOPHILS % (AUTO) 1 % (1-7); LYMPHOCYTES % (AUTO) 43 % (22-44); MEAN CORPUSCULAR HEMOGLOBIN 28.3 pg (27.5-34.5); MEAN CORPUSCULAR HGB CONC 32.7 g/dL (33.2-36.2); MONOCYTES % (AUTO) 13 % (2-9); NEUTROPHILS % (AUTO) 41 % (42-75); PLATELET COUNT 137 x10^3/uL (130-400); RED BLOOD COUNT 2.87 x10^6/uL (4.38-5.82); RED CELL DISTRIBUTION WIDTH 17.9 % (9.4-14.8)
[2021-05-25 06:02] VITALS: BP 124/85
[2021-05-25] MEDS: CARVEDILOL 25 MG TABLET PO SCH ×2 (06:03→17:52)
[2021-05-25 06:08] LABS: CALCIUM 8.2 mg/dL (8.5-10.1); CHLORIDE 110 mmol/L (98-107)
[2021-05-25 06:19] LABS: ALANINE AMINOTRANSFERASE 84 U/L (12-78); ALBUMIN 2.3 g/dL (3.4-5.0); ALKALINE PHOSPHATASE 143 U/L (45-117); ANION GAP 7 mmol/L (5-15); BILIRUBIN,TOTAL 0.3 mg/dL (0.2-1.0); CREATINE KINASE, TOTAL 290 U/L (39-308); CREATININE 0.86 mg/dL (0.7-1.3); TOTAL PROTEIN 7.5 g/dL (6.4-8.2)
[2021-05-25 07:04] LABS: HCT (SEDRATE) 24.9 % (39.2-51.8)
[2021-05-25] MEDS: LISINOPRIL 10 MG TABLET PO SCH ×2 (07:22→19:36)
[2021-05-25] MEDS: AMLODIPINE 5 MG TABLET PO SCH (07:22)
[2021-05-25 13:25] VITALS: BP 128/88
[2021-05-25] MEDS: DAPTOMYCIN 800 MG in SODIUM CHLORIDE 0.9% 100 ML IV SCH (17:52)
[2021-05-25 19:02] VITALS: BP 129/80
[2021-05-25] MEDS: LACTOBACILLUS CHEW TABLET PO SCH (19:36)
[2021-05-26 01:15] VITALS: BP 114/72
[2021-05-26 06:14] VITALS: BP 128/83
[2021-05-26] MEDS: CARVEDILOL 25 MG TABLET PO SCH ×2 (06:14→17:28)
[2021-05-26 08:50] VITALS: BP 135/75
[2021-05-26] MEDS: AMLODIPINE 5 MG TABLET PO SCH (10:43)
[2021-05-26] MEDS: LACTOBACILLUS CHEW TABLET PO SCH ×3 (10:43→21:22)
[2021-05-26] MEDS: LISINOPRIL 10 MG TABLET PO SCH ×2 (10:43→21:22)
[2021-05-26 11:45] VITALS: BP 138/81
[2021-05-26 14:00] VITALS: BP 138/81
[2021-05-26] MEDS: DAPTOMYCIN 800 MG in SODIUM CHLORIDE 0.9% 100 ML IV SCH (19:05)
[2021-05-26 19:17] VITALS: BP 130/83
[2021-05-27 00:51] VITALS: BP 113/74
[2021-05-27 05:57] VITALS: BP 115/82
[2021-05-27] MEDS: CARVEDILOL 25 MG TABLET PO SCH ×2 (05:57→18:04)
[2021-05-27 07:58] VITALS: BP 101/62
[2021-05-27] MEDS: AMLODIPINE 5 MG TABLET PO SCH (10:24)
[2021-05-27] MEDS: LACTOBACILLUS CHEW TABLET PO SCH ×3 (10:24→21:18)
[2021-05-27] MEDS: LISINOPRIL 10 MG TABLET PO SCH ×2 (10:24→21:18)
[2021-05-27 13:44] VITALS: BP 117/76
[2021-05-27 14:54] LABS: ANION GAP 12 mmol/L (5-15); CALCIUM 8.8 mg/dL (8.5-10.1); CHLORIDE 110 mmol/L (98-107); CREATININE 1.13 mg/dL (0.7-1.3)
[2021-05-27] MEDS ORDERED: DAPTOMYCIN 400 MG in SODIUM CHLORIDE 0.9% 100 ML IV SCH (18:00)
[2021-05-27 20:41] VITALS: BP 98/63
[2021-05-27 21:17] VITALS: BP 130/76
[2021-05-28 01:06] VITALS: BP 111/73
[2021-05-28 05:57] VITALS: BP 132/81
[2021-05-28] MEDS: CARVEDILOL 25 MG TABLET PO SCH ×2 (06:00→18:00)
[2021-05-28 06:23] LABS: BASOPHILS % (AUTO) 1 % (0-1); EOSINOPHILS % (AUTO) 2 % (1-7); LYMPHOCYTES % (AUTO) 46 % (22-44); MEAN CORPUSCULAR HGB CONC 31.8 g/dL (33.2-36.2); MEAN PLATELET VOLUME 8.3 fL (7.4-10.4); MONOCYTES % (AUTO) 12 % (2-9); NEUTROPHILS % (AUTO) 40 % (42-75); PLATELET COUNT 212 x10^3/uL (130-400); RED BLOOD COUNT 3.33 x10^6/uL (4.38-5.82); RED CELL DISTRIBUTION WIDTH 18.3 % (9.4-14.8)
[2021-05-28 06:33] LABS: CHLORIDE 109 mmol/L (98-107)
[2021-05-28 06:52] LABS: ANION GAP 6 mmol/L (5-15); CREATINE KINASE, TOTAL 1088 U/L (39-308)
[2021-05-28 06:57] LABS: ANISOCYTOSIS 1+; HYPOCHROMIA 1+; POLYCHROMASIA 1+
[2021-05-28 07:01] LABS: <PLATELET ESTIMATE> ADEQUATE; <PLT MORPHOLOGY> NORMAL PLT MORPH; OVALOCYTES 1+
[2021-05-28 08:12] VITALS: BP 113/77
[2021-05-28] MEDS: LACTOBACILLUS CHEW TABLET PO SCH ×2 (08:39→16:00)
[2021-05-28] MEDS: AMLODIPINE 5 MG TABLET PO SCH (08:39)
[2021-05-28] MEDS: LISINOPRIL 10 MG TABLET PO SCH (08:39)
[2021-05-28] MEDS ORDERED: VANCOMYCIN PER PHARMACY MC PRN (10:00)
[2021-05-28] MEDS ORDERED: PHARMACOKINETIC CONSULTATION MC ONE (10:00)
[2021-05-28] MEDS ORDERED: PHARMACOKINETIC MONITORING MC PRN (10:00)
[2021-05-28] MEDS ORDERED: VANCOMYCIN 1,200 MG in SODIUM CHLORIDE 0.9% 250 ML IV ONE (10:30)
[2021-05-28] MEDS ORDERED: SODIUM CHLORIDE 0.9% 1,000 ML IV SCH (13:00)
[2021-05-28 15:07] VITALS: BP 122/70
[2021-05-28] MEDS ORDERED: VANCOMYCIN 1,000 MG in SODIUM CHLORIDE 0.9% 100 ML IV SCH (22:30)
== END 2021-05-28 18:09 | disposition left against medical advice (07) | DRG 870 ==
LOC: ED 06:58 → EDIP 09:25 → CCU 14:41 → 4NW 05-04 17:54 → 4NE 05-07 23:47 → 3N 05-11 01:07
PROVIDERS: ADMIT Family Medicine; ATTEND Family Medicine
PROC: 02HV33Z Insertion of Infusion Device into Superior Vena Cava, Percutaneous Approach (ICD-10-PCS; principal; 2021-04-21)
PROC: 5A1945Z Respiratory Ventilation, 24-96 Consecutive Hours (ICD-10-PCS; 2021-04-21)
PROC: 0BH17EZ Insertion of Endotracheal Airway into Trachea, Via Natural or Artificial Opening (ICD-10-PCS; 2021-04-21)
PROC: 5A12012 Performance of Cardiac Output, Single, Manual (ICD-10-PCS; 2021-04-21)
PROC: B543ZZA Ultrasonography of Right Jugular Veins, Guidance (ICD-10-PCS; 2021-04-21)
PROC: 04HK33Z Insertion of Infusion Device into Right Femoral Artery, Percutaneous Approach (ICD-10-PCS; 2021-04-21)
PROC: 5A1955Z Respiratory Ventilation, Greater than 96 Consecutive Hours (ICD-10-PCS; 2021-04-27)
PROC: 0W993ZZ Drainage of Right Pleural Cavity, Percutaneous Approach (ICD-10-PCS; 2021-04-27)
PROC: 0BH17EZ Insertion of Endotracheal Airway into Trachea, Via Natural or Artificial Opening (ICD-10-PCS; 2021-04-27)
PROC: 30233N1 Transfusion of Nonautologous Red Blood Cells into Peripheral Vein, Percutaneous Approach (ICD-10-PCS; 2021-04-27)
DX: A41.02 Sepsis due to Methicillin resistant Staphylococcus aureus (principal); E43 Unspecified severe protein-calorie malnutrition; G93.41 Metabolic encephalopathy; I21.4 Non-ST elevation (NSTEMI) myocardial infarction; I46.9 Cardiac arrest, cause unspecified; I63.9 Cerebral infarction, unspecified; J18.9 Pneumonia, unspecified organism; J96.01 Acute respiratory failure with hypoxia; N17.0 Acute kidney failure with tubular necrosis; I50.23 Acute on chronic systolic (congestive) heart failure; B19.10 Unspecified viral hepatitis B without hepatic coma; E87.1 Hypo-osmolality and hyponatremia; I31.3 Pericardial effusion (noninflammatory); Z68.1 Body mass index [BMI] 19.9 or less, adult; D68.9 Coagulation defect, unspecified; E87.0 Hyperosmolality and hypernatremia; I76 Septic arterial embolism; K76.6 Portal hypertension; M62.82 Rhabdomyolysis; R18.8 Other ascites; Z99.11 Dependence on respirator [ventilator] status; Z66 Do not resuscitate; B19.20 Unspecified viral hepatitis C without hepatic coma; D64.9 Anemia, unspecified; D69.6 Thrombocytopenia, unspecified; E16.2 Hypoglycemia, unspecified; F11.10 Opioid abuse, uncomplicated; F15.10 Other stimulant abuse, uncomplicated; F17.210 Nicotine dependence, cigarettes, uncomplicated; I11.0 Hypertensive heart disease with heart failure; I16.0 Hypertensive urgency; E83.42 Hypomagnesemia; I66.9 Occlusion and stenosis of unspecified cerebral artery; K74.60 Unspecified cirrhosis of liver; T40.1X1A Poisoning by heroin, accidental (unintentional), initial encounter; I48.91 Unspecified atrial fibrillation; R65.20 Severe sepsis without septic shock; Z59.0 Homelessness; Z79.899 Other long term (current) drug therapy
CPT/HCPCS: 31500; 32555; 36415; 36556; 36600; 74018; 84145; 87536; 87806; 89051; 96365; 96368; 96375; 99291; 99292; J3370; J3490; 70450; 70551; 71045; 71275; 76700; 80048; 80053; 80061; 80307; 80321; 82330; 82550; 82803; 82962; 83605; 83615; 83735; 83880; 84100; 84132; 84157; 84478; 84484; 85014; 85018; 85025; 85049; 85379; 85384; 85610; 85651; 85730; 86140; 86361; 86592; 86850; 86900; 86923; 87040; 87070; 87077; 87081; 87147; 87186; 87205; 87324; 87491; 87517; 87522; 87535; 87591; 87902; 87903; 87904; 88112; 88305; 93005; 93306; 93356; 94002; 94003; 95819; G0378; J0456; J0696; J0712; J0878; J1644; J1940; J2020; J2250; J2405; J2543; J2704; J3010; J3430; J3475; J3480; J3486; J7070; J7120; Q9967; 92523-GN; C9113; G0475; G0480; J0360; J2060; J2270; J7030; J7040; J7050; P9016

== ENCOUNTER 2021-06-02 17:08 | Emergency (ER) | payer MEDICAID ==
[~2021-06-02] VITALS: Ht 172.7 cm; Wt 55.0 kg
[2021-06-02 17:13] VITALS: BP 152/108
[2021-06-02] MEDS ORDERED: NALOXONE 0.4 MG/ML, 1ML IVPush ONE (17:30)
[2021-06-02] MEDS ORDERED: NALOXONE 0.4 MG/ML, 1ML ONE (17:52)
--- NOTE | 2021-06-02 17:53 | NUR ---
PT AWAKE & TALKING IN COMPLETE SENTANCES. HOLDING NARCA AT THIS TIME. WILL CTM.
--- NOTE | 2021-06-02 18:14 | NUR ---
pt removed piv. bleeding controlled. pt moved monitor leads. pt ambulatory to restroom c steady gait.
[2021-06-02 18:27] LABS: ALBUMIN 2.9 g/dL (3.4-5.0); ANION GAP 4 mmol/L (5-15); CALCIUM 8.8 mg/dL (8.5-10.1); CHLORIDE 105 mmol/L (98-107)
[2021-06-02 18:30] LABS: ALANINE AMINOTRANSFERASE 112 U/L (12-78); ALKALINE PHOSPHATASE 167 U/L (45-117); BILIRUBIN,TOTAL 0.4 mg/dL (0.2-1.0); CREATININE 1.27 mg/dL (0.7-1.3); TOTAL PROTEIN 9.4 g/dL (6.4-8.2)
--- NOTE | 2021-06-02 18:33 | NUR ---
alberto flores. aware.
== END 2021-06-02 18:54 | disposition left against medical advice (07) ==
LOC: ED 17:30
DX: T40.1X1A Poisoning by heroin, accidental (unintentional), initial encounter (principal); F11.129 Opioid abuse with intoxication, unspecified; G92 Toxic encephalopathy; Z72.9 Problem related to lifestyle, unspecified; R41.82 Altered mental status, unspecified; I10 Essential (primary) hypertension; G43.909 Migraine, unspecified, not intractable, without status migrainosus; I25.2 Old myocardial infarction; Y92.89 Other specified places as the place of occurrence of the external cause
CPT/HCPCS: 36415; 80053; 93005; 99284